=== PATIENT | male | born 1970 ===

== ENCOUNTER 2018-07-02 00:53 | Inpatient (IN) | payer BC ==
[2018-07-02] MEDS ORDERED: Sodium Chloride 0.9% 1,000 ML IV STA ×2 (01:01→03:18)
[2018-07-02] MEDS ORDERED: Morphine 2 mg/ml ISec IVP STA ×3 (01:01→02:44)
[2018-07-02 01:20] LABS: BASO # 0.02 K/mm3 (0.0-2.0); BASO % 0.2 % (0.0-3.0); EOS # 0.1 (0.0-0.7); EOS % 1.2 % (1.5-5.0); HEMOGLOBIN 13.4 g/dL (14.0-18.0); LYMPH # 3.1 (1.2-3.4); LYMPH % 26.4 % (22.0-35.0); MEAN CORPUSCULAR HGB CONC 33.8 g/dl (31.0-37.0); MEAN PLATELET VOLUME 10.1 fl (7.0-11.0); MONO # 0.6 (0.1-0.6); MONO % 5.3 % (1.0-6.0); RBC 4.46 10^6/uL (3.5-6.1); RED CELL DISTRIBUTION WIDTH 13.5 % (11.5-14.5); WHITE BLOOD COUNT 11.6 10^3/uL (4.5-11.0)
[2018-07-02 01:24] LABS: INR 1.05; PARTIAL THROMBOPLASTIN TIME 37.2 Seconds (26.9-38.3); PROTHROMBIN TIME 11.6 SECONDS (9.4-12.5)
[2018-07-02 01:30] LABS: ALB/GLOB RATIO 1.3 (1.1-1.8); ALBUMIN 4.3 g/dL (3.0-4.8); ALT/SGPT 33 U/L (7-56); AMYLASE 73 U/L (35-125); AST/SGOT 36 U/L (17-59); BLOOD UREA NITROGEN 22 mg/dL (7-21); CALCIUM 9.1 mg/dL (8.4-10.5); GFR NON-AFRICAN AMERICAN > 60; LIPASE 121 U/L (23-300)
[2018-07-02] MEDS ORDERED: Iohexol 350 MG/100 ML VIAL ONE (01:41)
[2018-07-02 01:48] LABS: TROPONIN I < 0.01 ng/mL
--- NOTE | 2018-07-02 01:59 | ED PDOC ---
Arrival/HPI - General Chief Complaint: Abdominal Pain Time Seen by Provider: 07/02/18 00:56 Historian: Patient - History of Present Illness Narrative History of Present Illness (Text): 07/02/18 01:00 Ernie Bowie is a 48 year old male, whose past medical history includes gastritis, who presents to the ED complaining of abdominal pain since this evening. Patient reports associated nausea and notes he attempted to induce vomiting secondary to his nausea. Patient states he had tacos for dinner tonight. Patient denies any fever, chills, chest pain, shortness of breath, diarrhea, urinary symptoms, back pain, neck pain, headache, dizziness, or any other complaints. Time/Duration: Other (today) Symptom Onset: Gradual Symptom Course: Unchanged Activities at Onset: Light, Eating Context: Home Past Medical History - Provider Review Nursing Documentation Reviewed: Yes - Infectious Disease Hx of Infectious Diseases: None - Cardiac Hx Cardiac Disorders: No - Pulmonary Hx Respiratory Disorders: No - Neurological Hx Neurological Disorder: No - Gastrointestinal Hx Gastrointestinal Disorders: No Hx Gastroesophageal Reflux: Yes - Psychiatric Hx Psychophysiologic Disorder: No Hx Substance Use: No - Anesthesia Hx Anesthesia: No Family/Social History - Physician Review Nursing Documentation Reviewed: Yes Family/Social History: Unknown Family HX Smoking Status: Light Smoker < 10 Cigarettes Daily Hx Alcohol Use: No Hx Substance Use: No Allergies/Home Meds Allergies/Adverse Reactions: Allergies No Known Allergies Allergy (Verified 07/02/18 00:58) Home Medications: Home Meds Medication Instructions Recorded Confirmed No Known Home Med 07/02/18 07/02/18 Review of Systems - Physician Review All systems were reviewed & negative as marked: Yes - Review of Systems Constitutional: Normal. absent: Fevers Eyes: Normal ENT: Normal Respiratory: Normal. absent: SOB, Cough Cardiovascular: Normal. absent: Chest Pain Gastrointestinal: Abdominal Pain, Nausea Genitourinary Male: Normal. absent: Dysuria, Frequency, Hematuria, Urinary Output Changes Musculoskeletal: Normal. absent: Back Pain, Neck Pain Skin: Normal. absent: Rash Neurological: Normal. absent: Headache, Dizziness Endocrine: Normal Hemo/Lymphatic: Normal Psychiatric: Normal Physical Exam Vital Signs Reviewed: Yes Vital Signs Temp Pulse Resp BP Pulse Ox 07/02/18 01:05 98.1 F 52 L 20 149/105 H 100 Temperature: Afebrile Blood Pressure: Hypertensive Pulse: Regular Respiratory Rate: Normal Appearance: Positive for: Well-Appearing, Non-Toxic, Comfortable Pain Distress: None Mental Status: Positive for: Alert and Oriented X 3 - Systems Exam Head: Present: Atraumatic, Normocephalic Pupils: Present: PERRL Extroacular Muscles: Present: EOMI Conjunctiva: Present: Normal Mouth: Present: Moist Mucous Membranes Neck: Present: Normal Range of Motion Respiratory/Chest: Present: Clear to Auscultation, Good Air Exchange. No: Respiratory Distress, Accessory Muscle Use Cardiovascular: Present: Regular Rate and Rhythm, Normal S1, S2. No: Murmurs Abdomen: No: Tenderness, Distention, Peritoneal Signs Back: Present: Normal Inspection Upper Extremity: Present: Normal Inspection. No: Cyanosis, Edema Lower Extremity: Present: Normal Inspection. No: Edema Neurological: Present: GCS=15, CN II-XII Intact, Speech Normal Skin: Present: Warm, Dry, Normal Color. No: Rashes Psychiatric: Present: Alert, Oriented x 3, Normal Insight, Normal Concentration Medical Decision Making ED Course and Treatment: 07/02/18 01:00 Impression: 48 year old male complaining of abdominal pain and nausea. Plan: -- CT Abdomen and Pelvis with IV contrast -- EKG -- Labs, cardiac enzymes, amylase, lipase, blood cultures -- UA -- IV fluids -- Zofran -- Pepcid -- Morphine -- Reassess and disposition Prior Visits: Notes and results from previous visits were reviewed. Progress Notes: Reviewed EKG, sinus bradycardia at [address]-segment elevations or depressions, no T-wave inversions, normal intervals. 07/02/18 03:08 CT Abdomen and Pelvis: Uncomplicated colonic diverticulosis. Mild prostatomegaly. Prostatic calcifications. Mild diffuse thickening of the bladder which can be secondary to mild cystitis versus chronic changes of chronic bladder obstruction from prostatomegaly. Mild diffuse spondylosis. The liver is of uniform attenuation without mass or defect. There is no intra or extrahepatic biliary ductal dilatation. The spleen is normal. The gallbladder is within normal limits. The pancreas is of normal contour and attenuation characteristics. There is no evidence of adrenal mass. Both kidneys demonstrate prompt and equal nephrograms. The kidneys are normal in size, shape and configuration. There is no evidence of renal or ureteral mass. No renal or ureteral calculi are identified. There is no hydroureter or hydronephrosis. No evidence for appendicitis. There is no bowel wall thickening. No evidence for small or large bowel obstruction. There is no evidence of abdominal ascites or lymphadenopathy. There is no evidence of intrinsic or extrinsic bladder mass. There is no pelvic ascites or lymphadenopathy. Images of the lung bases show no evidence of pleural or parenchymal mass. There are no pleural effusions. The bony structures are free of lytic or blastic lesions. IMPRESSION: Uncomplicated colonic diverticulosis. Mild prostatomegaly. Prostatic calcifications. Mild diffuse thickening of the bladder which can be secondary to mild cystitis versus chronic changes of chronic bladder obstruction from prostatomegaly. Mild diffuse spondylosis. Electronically signed on July 02, 2018 3:05:45 AM EDT by: Rick Mcpherson M.D., Certified by ABR, MSK, Neuroradiology 07/02/18 03:[address] Del Rio, who is aware and agrees with plan. Accepts pt in to his service. - Lab Interpretations Lab Results: PT 11.6 SECONDS (9.4-12.5) 07/02/18 01:06 INR 1.05 07/02/18 01:06 APTT 37.2 Seconds (26.9-38.3) 07/02/18 01:06 Troponin I < 0.01 ng/mL 07/02/18 01:06 Total Bilirubin 0.5 mg/dL (0.2-1.3) 07/02/18 01:06 AST 36 U/L (17-59) 07/02/18 01:06 ALT 33 U/L (7-56) 07/02/18 01:06 Alkaline Phosphatase 88 U/L (38-126) 07/02/18 01:06 Total Protein 7.5 g/dL (5.8-8.3) 07/02/18 01:06 Albumin 4.3 g/dL (3.0-4.8) 07/02/18 01:06 Globulin 3.3 gm/dL 07/02/18 01:06 Albumin/Globulin Ratio 1.3 (1.1-1.8) 07/02/18 01:06 Amylase 73 U/L (35-125) 07/02/18 01:06 Lipase 121 U/L (23-300) 07/02/18 01:06 - RAD Interpretation Radiology Orders: 07/02/18 01:01 CHEST PORTABLE [RAD] Stat 07/02/18 01:21 ABD & PELVIS IV CONTRAST ONLY [CT] Stat - EKG Interpretation Interpreted by ED Physician: Yes Type: 12 lead EKG - Medication Orders Current Medication Orders: Sodium Chloride (Sodium Chloride 0.9%) 1,000 mls @ 100 mls/hr IV .Q10H STA Stop: 07/02/18 11:00 Last Admin: 07/02/18 01:12 Dose: 100 mls/hr eMAR Start Stop Document 07/02/18 01:12 IT (Rec: 07/02/18 01:12 IT [id number]) Intravenous Solution Start Date 07/02/18 Start Time 01:12 Discontinued Medications Famotidine (Pepcid) 20 mg IVP STAT STA Stop: 07/02/18 01:02 Last Admin: 07/02/18 01:12 Dose: 20 mg IVP Administration Document 07/02/18 01:12 IT (Rec: 07/02/18 01:12 IT [id number]) Charges for Administration # of IVP Administrations 1 Morphine Sulfate (Morphine) 2 mg IVP STAT STA Stop: 07/02/18 01:02 Last Admin: 07/02/18 01:12 Dose: 2 mg MAR Pain Assessment Document 07/02/18 01:12 IT (Rec: 07/02/18 01:12 IT [facility] [id number]) Pain Reassessment Is this a pain reassessment? No Sleep Is patient sleeping during reassessment? No Presence of Pain Presence of Pain Yes Pain Scale Used Protocol: PSCALES Pain Scale Used Numeric IVP Administration Document 07/02/18 01:12 IT (Rec: 07/02/18 01:12 IT [facility] [id number]) Charges for Administration # of IVP Administrations 1 Morphine Sulfate (Morphine) 2 mg IVP STAT STA Stop: 07/02/18 01:40 Last Admin: 07/02/18 01:51 Dose: 2 mg MAR Pain Assessment Document 07/02/18 01:51 IT (Rec: 07/02/18 01:52 IT [id number]) Pain Reassessment Is this a pain reassessment? No Sleep Is patient sleeping during reassessment? No Presence of Pain Presence of Pain Yes IVP Administration Document 07/02/18 01:51 IT (Rec: 07/02/18 01:52 IT [id number]) Charges for Administration # of IVP Administrations 1 Ondansetron HCl (Zofran Inj) 4 mg IVP STAT STA Stop: 07/02/18 01:02 Last Admin: 07/02/18 01:12 Dose: 4 mg IVP Administration Document 07/02/18 01:12 IT (Rec: 07/02/18 01:12 IT [id number]) Charges for Administration # of IVP Administrations 1 - Scribe Statement The provider has reviewed the documentation as recorded by the Amita Bryan Provider Scribe Attestation: All medical record entries made by the Ivonneibjazzy were at my direction and personally dictated by me. I have reviewed the chart and agree that the record accurately reflects my personal performance of the history, physical exam, medical decision making, and the department course for this patient. I have also personally directed, reviewed, and agree with the discharge instructions and disposition. Disposition/Present on Arrival - Present on Arrival Any Indicators Present on Arrival: No History of DVT/PE: No History of Uncontrolled Diabetes: No Urinary Catheter: No History of Decub. Ulcer: No History Surgical Site Infection Following: None - Disposition Have Diagnosis and Disposition been Completed?: Yes Diagnosis: Abdominal pain Disposition: HOSPITALIZED Disposition Time: 03:15 Condition: FAIR
[2018-07-02 02:16] LABS: CK MB% 1.1 % (2.5-3.0); CK-MB 5.4 ng/mL (0.0-3.6)
[2018-07-02] MEDS ORDERED: HYDROmorphone 2 mg/ml ISec IVP STA (03:12)
[2018-07-02 03:28] LABS: VENOUS BLOOD GAS PO2 49 mm/Hg (30-55); VENOUS BLOOD PH 7.31 (7.32-7.43)
[2018-07-02] MEDS ORDERED: Alum-Mag Hydrox-Simethicone Susp (30 mL) PO ONE (10:39)
--- NOTE | 2018-07-02 10:56 | RAD ---
Date of service: 07/02/2018 HISTORY: abd pain COMPARISON: No prior. TECHNIQUE: 1 view obtained. FINDINGS: LUNGS: No active pulmonary disease. PLEURA: No significant pleural effusion identified, no pneumothorax apparent. CARDIOVASCULAR: No aortic atherosclerotic calcification present. Normal cardiac size. No pulmonary vascular congestion. OSSEOUS STRUCTURES: No significant abnormalities. VISUALIZED UPPER ABDOMEN: Normal. OTHER FINDINGS: None. IMPRESSION: No active disease.
--- NOTE | 2018-07-02 10:58 | CT ---
Date of service: 07/02/2018 PROCEDURE: CT Abdomen and Pelvis with contrast HISTORY: abd pain COMPARISON: None. TECHNIQUE: Contrast dose: 100 mL Omnipaque 350 Radiation dose: Total exam DLP = 416.2 mGy-cm. This CT exam was performed using one or more of the following dose reduction techniques: Automated exposure control, adjustment of the mA and/or kV according to patient size, and/or use of iterative reconstruction technique. FINDINGS: LOWER THORAX: Unremarkable. LIVER: Unremarkable. No gross lesion or ductal dilatation. GALLBLADDER AND BILE DUCTS: Unremarkable. PANCREAS: Unremarkable. No gross lesion or ductal dilatation. SPLEEN: Unremarkable. ADRENALS: Unremarkable. No mass. KIDNEYS AND URETERS: Unremarkable. No hydronephrosis. No solid mass. VASCULATURE: Unremarkable. No aortic aneurysm. No aortic atherosclerotic calcification or mural plaque present. BOWEL: Colonic diverticulosis. No obstruction. No gross mural thickening. APPENDIX: Normal appendix. PERITONEUM: Unremarkable. No free fluid. No free air. LYMPH NODES: Unremarkable. No enlarged lymph nodes. BLADDER: Unremarkable. REPRODUCTIVE: Prostatomegaly. BONES: No acute fracture. OTHER FINDINGS: None. IMPRESSION: No acute abdominal pelvic pathology. Colonic diverticulosis without acute diverticulitis.
--- NOTE | 2018-07-02 12:56 | CP.PCM.HP ---
<JasperWashington - Last Filed: 07/02/18 12:51> History of Present Illness - History of Present Illness History of Present Illness: Washington Hutchinson D.O. PGY-3, Internal Medicine Resident, Dr. Del Rio's Service, H&P CC: Severe abdominal pain overnight 48-year-old male with a past medical history of gastritis who presented for complaints of abdominal pain that started last night. Patient relates that he has had issues with his stomach for approximately 2 years. Patient discussed these with his primary medical doctor and was started on a 1 month trial of PPI therapy. Patient at that time had improvement in his symptoms for some time but then they recurred. Patient again saw his PMD and was told to continue to take PPI therapy only as needed. Patient was instructed to follow-up with gastroenterology but he never got around to it. Patient states that last night he had tacos that were prepared by his girlfriend. His girlfriend and the girlfriend's daughter also ate the same thing and did not have any issues. Patient states that since he has some discomfort he went and tried to take an old prescription of omeprazole. Patient's abdominal pain increased after he took this pill and he then noticed that it is actually for about 1 year already. Patient felt nauseous but did not vomit, admits to trying to induce vomiting to try to "clear his system." Patient denies ever having pain is bad. Patient states that the pain was approximately an 8 out of 10, was diffuse but worse in the lower abdomen. Did not radiate. States that when his pain like this comes on its usually a few hours after a meal. Patient admits to drinking multiple cups of coffee per day. Patient at this time denies any fevers, chills, constipation, diarrhea, chest pain, shortness of breath, hematuria, dysuria or other complaints. PMH: As above SH: 31-year smoking history with gradually decreasing use from 1 pack/day to 1 pack/week at the latest, denies alcohol use, denies drug use FH: Father of a stroke and hypertension, mother of endometrial cancer that recurred after treatment Meds: PRN omeprazole that he has not taken for a long time until last night Allergies: No known allergies Present on Admission - Present on Admission Any Indicators Present on Admission: No Review of Systems - Review of Systems All systems: reviewed and no additional remarkable complaints except (as per HPI) Past Patient History - Infectious Disease Hx of Infectious Diseases: None - Past Social History Smoking Status: Light Smoker < 10 Cigarettes Daily - CARDIAC Hx Cardiac Disorders: No - PULMONARY Hx Respiratory Disorders: No - NEUROLOGICAL Hx Neurological Disorder: No - MUSCULOSKELETAL/RHEUMATOLOGICAL Hx Falls: No - GASTROINTESTINAL Hx Gastroesophageal Reflux: Yes (gastritis) - PSYCHIATRIC Hx Psychophysiologic Disorder: No Hx Substance Use: No - SURGICAL HISTORY Hx Surgeries: No - ANESTHESIA Hx Anesthesia: No Meds Allergies/Adverse Reactions: Allergies Allergy/AdvReac Type Severity Reaction Status Date / Time No Known Allergies Allergy Verified 07/02/18 00:58 Physical Exam - Constitutional Appears: Non-toxic, No Acute Distress - Head Exam Head Exam: ATRAUMATIC, NORMOCEPHALIC - Eye Exam Eye Exam: EOMI, PERRL. absent: Scleral icterus - ENT Exam ENT Exam: Mucous Membranes Moist, Normal Oropharynx - Neck Exam Neck exam: Positive for: Normal Inspection. Negative for: Lymphadenopathy - Respiratory Exam Respiratory Exam: Clear to Auscultation Bilateral. absent: Rales, Rhonchi, Wheezes - Cardiovascular Exam Cardiovascular Exam: RRR, +S1, +S2. absent: Gallop, Rubs - GI/Abdominal Exam GI & Abdominal Exam: Normal Bowel Sounds, Soft, Tenderness (RUQ, +Colbert's). absent: Distended - Extremities Exam Extremities exam: Positive for: normal capillary refill. Negative for: calf tenderness, pedal edema - Neurological Exam Neurological exam: Alert, Oriented x3 - Psychiatric Exam Psychiatric exam: Normal Affect, Normal Mood - Skin Skin Exam: Dry, Warm Results - Vital Signs Recent Vital Signs: Last Vital Signs Temp 98.1 F 07/02/18 06:00 Pulse 68 07/02/18 06:00 Resp 18 07/02/18 06:00 BP 145/83 07/02/18 06:00 Pulse Ox 100 07/02/18 06:00 - Labs Result Diagrams: 07/02/18 01:06 07/02/18 01:06 Labs: Laboratory Results - last 24 hr 07/02/18 07/02/18 07/02/18 01:06 01:06 01:06 WBC 11.6 H RBC 4.46 Hgb 13.4 L Hct 39.7 L MCV 89.0 MCH 30.0 MCHC 33.8 RDW 13.5 Plt Count 217 MPV 10.1 Neut % (Auto) 66.9 Lymph % (Auto) 26.4 Dare % (Auto) 5.3 Eos % (Auto) 1.2 L Baso % (Auto) 0.2 Lymph # (Auto) 3.1 Dare # (Auto) 0.6 Eos # (Auto) 0.1 Baso # (Auto) 0.02 Absolute Neuts (auto) 7.74 H PT 11.6 INR 1.05 APTT 37.2 pO2 VBG pH VBG pCO2 VBG HCO3 VBG Total CO2 VBG O2 Sat (Calc) VBG Base Excess VBG Potassium Glucose Lactate FiO2 Sodium 139 Potassium 4.2 Chloride 106 Carbon Dioxide 26 Anion Gap 12 BUN 22 H Creatinine 1.1 Est GFR ( Amer) > 60 Est GFR (Non-Af Amer) > 60 Random Glucose 125 H Calcium 9.1 Total Bilirubin 0.5 AST 36 ALT 33 Alkaline Phosphatase 88 Lactate Dehydrogenase 589 Total Creatine Kinase 481 H CK-MB (CK-2) 5.4 H CK-MB (CK-2) % 1.1 L Troponin I < 0.01 Total Protein 7.5 Albumin 4.3 Globulin 3.3 Albumin/Globulin Ratio 1.3 Amylase 73 Lipase 121 Venous Blood Potassium 07/02/18 03:15 WBC RBC Hgb Hct MCV MCH MCHC RDW Plt Count MPV Neut % (Auto) Lymph % (Auto) Dare % (Auto) Eos % (Auto) Baso % (Auto) Lymph # (Auto) Dare # (Auto) Eos # (Auto) Baso # (Auto) Absolute Neuts (auto) PT INR APTT pO2 49 VBG pH 7.31 L VBG pCO2 54.0 VBG HCO3 27.2 VBG Total CO2 28.9 H VBG O2 Sat (Calc) 84.7 H VBG Base Excess 0.0 VBG Potassium 3.7 Glucose 134 H Lactate 0.9 FiO2 21.0 Sodium 140.0 Potassium Chloride 107.0 Carbon Dioxide Anion Gap BUN Creatinine Est GFR ( Amer) Est GFR (Non-Af Amer) Random Glucose Calcium Total Bilirubin AST ALT Alkaline Phosphatase Lactate Dehydrogenase Total Creatine Kinase CK-MB (CK-2) CK-MB (CK-2) % Troponin I Total Protein Albumin Globulin Albumin/Globulin Ratio Amylase Lipase Venous Blood Potassium 3.7 Assessment & Plan - Assessment and Plan (Free Text) Assessment: 48-year-old male with a past medical history of gastritis who presented for complaints of abdominal pain that started last night. Plan: 1. Abdominal pain 2. Diverticulosis without diverticulitis 3. Tobacco abuse Etiology of his abdominal pain unclear. Lipase and amylase normal. Abdomen and pelvis CT with nonspecific findings. Will obtain a GI consult. Discussed case with GI fellow. We will obtained an ultrasound of the gallbladder given his positive Colbert sign. We will keep n.p.o. for now. We will keep with Zofran as needed for his nausea. We will start Protonix 40 mg IV push daily. We will treat the patient symptomatically. Discussed tobacco cessation, patient thinking about it. Case discussed with nursing staff. Will follow patient clinically. Patient was seen and examined and case discussed at length with attending physician. - Date & Time Date: 07/02/18 Time: 08:00 <Shar Del Rio - Last Filed: 07/02/18 16:01> Results - Vital Signs Recent Vital Signs: Last Vital Signs Temp 98.1 F 07/02/18 14:00 Pulse 81 07/02/18 14:00 Resp 18 07/02/18 14:00 BP 128/80 07/02/18 14:00 Pulse Ox 98 07/02/18 14:00 - Labs Result Diagrams: 07/02/18 01:06 07/02/18 01:06 Labs: Laboratory Results - last 24 hr 07/02/18 07/02/18 07/02/18 01:06 01:06 01:06 WBC 11.6 H RBC 4.46 Hgb 13.4 L Hct 39.7 L MCV 89.0 MCH 30.0 MCHC 33.8 RDW 13.5 Plt Count 217 MPV 10.1 Neut % (Auto) 66.9 Lymph % (Auto) 26.4 Dare % (Auto) 5.3 Eos % (Auto) 1.2 L Baso % (Auto) 0.2 Lymph # (Auto) 3.1 Dare # (Auto) 0.6 Eos # (Auto) 0.1 Baso # (Auto) 0.02 Absolute Neuts (auto) 7.74 H PT 11.6 INR 1.05 APTT 37.2 pO2 VBG pH VBG pCO2 VBG HCO3 VBG Total CO2 VBG O2 Sat (Calc) VBG Base Excess VBG Potassium Glucose Lactate FiO2 Sodium 139 Potassium 4.2 Chloride 106 Carbon Dioxide 26 Anion Gap 12 BUN 22 H Creatinine 1.1 Est GFR ( Amer) > 60 Est GFR (Non-Af Amer) > 60 Random Glucose 125 H Calcium 9.1 Total Bilirubin 0.5 AST 36 ALT 33 Alkaline Phosphatase 88 Lactate Dehydrogenase 589 Total Creatine Kinase 481 H CK-MB (CK-2) 5.4 H CK-MB (CK-2) % 1.1 L Troponin I < 0.01 Total Protein 7.5 Albumin 4.3 Globulin 3.3 Albumin/Globulin Ratio 1.3 Amylase 73 Lipase 121 Venous Blood Potassium Urine Color Urine Appearance Urine pH Ur Specific Gaastra Urine Protein Urine Glucose (UA) Urine Ketones Urine Blood Urine Nitrate Urine Bilirubin Urine Urobilinogen Ur Leukocyte Esterase 07/02/18 07/02/18 03:15 13:15 WBC RBC Hgb Hct MCV MCH MCHC RDW Plt Count MPV Neut % (Auto) Lymph % (Auto) Dare % (Auto) Eos % (Auto) Baso % (Auto) Lymph # (Auto) Dare # (Auto) Eos # (Auto) Baso # (Auto) Absolute Neuts (auto) PT INR APTT pO2 49 VBG pH 7.31 L VBG pCO2 54.0 VBG HCO3 27.2 VBG Total CO2 28.9 H VBG O2 Sat (Calc) 84.7 H VBG Base Excess 0.0 VBG Potassium 3.7 Glucose 134 H Lactate 0.9 FiO2 21.0 Sodium 140.0 Potassium Chloride 107.0 Carbon Dioxide Anion Gap BUN Creatinine Est GFR ( Amer) Est GFR (Non-Af Amer) Random Glucose Calcium Total Bilirubin AST ALT Alkaline Phosphatase Lactate Dehydrogenase Total Creatine Kinase CK-MB (CK-2) CK-MB (CK-2) % Troponin I Total Protein Albumin Globulin Albumin/Globulin Ratio Amylase Lipase Venous Blood Potassium 3.7 Urine Color Yellow Urine Appearance Clear Urine pH 7.0 Ur Specific Gaastra 1.015 Urine Protein Negative Urine Glucose (UA) Negative Urine Ketones Negative Urine Blood Negative Urine Nitrate Negative Urine Bilirubin Negative Urine Urobilinogen 4.0 H Ur Leukocyte Esterase Negative Assessment & Plan - Assessment and Plan (Free Text) Plan: Pt seen and examined by me. I have reviewed the note of the medical office technician and I agree with it. I have discussed the assessment and plan with the resident. I have reviewed the medications and the last labs.
[2018-07-02] MEDS: Morphine 2 mg/ml ISec IVP PRN ×2 (13:14→19:26)
[2018-07-02 13:43] LABS: URINE BILIRUBIN NEGATIVE (NEGATIVE); URINE BLOOD NEGATIVE (NEGATIVE); URINE GLUCOSE (UA) NEGATIVE (NEGATIVE); URINE LEUKOCYTE ESTERASE NEGATIVE Leu/uL (NEGATIVE); URINE PROTEIN NEGATIVE mg/dL (<30 mg/dL)
[2018-07-02 13:44] LABS: URINE APPEARANCE CLEAR (CLEAR); URINE COLOR YELLOW (YELLOW)
--- NOTE | 2018-07-02 16:35 | HP ---
DATE OF EXAM: 07/02/2018 HISTORY OF PRESENT ILLNESS: The patient was seen and examined. I do agree with the note of the medical assisting program director. I was involved in the plan of care. The patient is admitted to the hospital because of abdominal pain, he said it started yesterday 09/15. He has been having nausea, but do not have any vomiting. The patient has been given morphine in the ER, which relieved the patient, has diverticulosis. He is going to be seen by GI for constipation. The patient may need an endoscopy. He was given Zofran for his nausea. He has been started on Protonix. The patient is currently n.p.o. He has a history of tobacco use and was advised to stop smoking. The patient will get an ultrasound to evaluate his gallbladder. Shar Del Rio MD
--- NOTE | 2018-07-02 17:23 | CARD ---
APPROVED REPORT Date of service: 07/02/2018 EKG Measurement Heart [id number] [place] [id number] [id number] <Conclusion> Sinus bradycardia Otherwise normal ECG
--- NOTE | 2018-07-02 21:12 | CP.PCM.CON ---
<Que Fuentes - Last Filed: 07/02/18 21:07> History of Present Illness - History of Present Illness History of Present Illness: PGY-4 GI Fellow Consult Note 48 yo M with h/o gastritis (clinical dx, prev on PPI trial) presenting with complaint of abdominal pain. He states in the evening of 07/01 after eating tacos he had abrupt onset sharp, non-radiating, RUQ pain, worse with PO intake with some associated nausea but no emesis. States this was different and more severe than his previous gastritis issues. States he tried an old rx of PPI w/o much relief. Denied any F/C, CP/SOB, weight loss, dysphagia, melena, nor hematochezia. No prior endoscopic evaluations. 12 point ROS negative other than stated above MHx/SurgHx: As above Meds: Reviewed in chart FamHx: Father of a stroke and hypertension, mother of endometrial cancer that recurred after treatment SocHx: 31-year smoking history with gradually decreasing use from 1 pack/day to 1 pack/week at the latest, denies alcohol use, denies drug use Allergies: No known allergies Past Patient History - Infectious Disease Hx of Infectious Diseases: None - Past Social History Smoking Status: Light Smoker < 10 Cigarettes Daily - CARDIAC Hx Cardiac Disorders: No - PULMONARY Hx Respiratory Disorders: No - NEUROLOGICAL Hx Neurological Disorder: No - MUSCULOSKELETAL/RHEUMATOLOGICAL Hx Falls: No - GASTROINTESTINAL Hx Gastroesophageal Reflux: Yes (gastritis) - PSYCHIATRIC Hx Psychophysiologic Disorder: No Hx Substance Use: No - SURGICAL HISTORY Hx Surgeries: No - ANESTHESIA Hx Anesthesia: No Meds Allergies/Adverse Reactions: Allergies Allergy/AdvReac Type Severity Reaction Status Date / Time No Known Allergies Allergy Verified 07/02/18 00:58 - Medications Medications: Current Medications Morphine Sulfate (Morphine) 2 mg IVP Q6H PRN PRN Reason: Pain, severe (8-10) Last Admin: 07/02/18 19:26 Dose: 2 mg Ondansetron HCl (Zofran Inj) 4 mg IVP Q4H PRN PRN Reason: Nausea/Vomiting Pantoprazole Sodium (Protonix Inj) 40 mg IVP DAILY SID Last Admin: 07/02/18 10:06 Dose: 40 mg Physical Exam - Constitutional Appears: Well, No Acute Distress - Head Exam Head Exam: ATRAUMATIC, NORMAL INSPECTION - Eye Exam Eye Exam: EOMI. absent: Scleral icterus - ENT Exam ENT Exam: Mucous Membranes Moist. absent: Mucous Membranes Dry - Respiratory Exam Respiratory Exam: NORMAL BREATHING PATTERN. absent: Accessory Muscle Use - Cardiovascular Exam Cardiovascular Exam: REGULAR RHYTHM, RRR - GI/Abdominal Exam GI & Abdominal Exam: Normal Bowel Sounds, Soft, Tenderness (ttp throughout but worse in RUQ w/o guarding). absent: Bruit, Diminished Bowel Sounds, Distended, Firm, Guarding, Mass, Organomegaly, Pulsatile Mass, Rebound, Rigid - Extremities Exam Extremities exam: Positive for: normal inspection. Negative for: pedal edema - Neurological Exam Neurological exam: Alert, CN II-XII Intact - Psychiatric Exam Psychiatric exam: Normal Affect, Normal Mood - Skin Skin Exam: Normal Color, Warm Results - Vital Signs Recent Vital Signs: Last Vital Signs Temp 98.1 F 07/02/18 14:00 Pulse 81 07/02/18 14:00 Resp 18 07/02/18 14:00 BP 128/80 07/02/18 14:00 Pulse Ox 98 07/02/18 14:00 - Labs Result Diagrams: 07/02/18 01:06 07/02/18 01:06 Labs: Laboratory Results - last 24 hr 07/02/18 07/02/18 07/02/18 01:06 01:06 01:06 WBC 11.6 H RBC 4.46 Hgb 13.4 L Hct 39.7 L MCV 89.0 MCH 30.0 MCHC 33.8 RDW 13.5 Plt Count 217 MPV 10.1 Neut % (Auto) 66.9 Lymph % (Auto) 26.4 Moody % (Auto) 5.3 Eos % (Auto) 1.2 L Baso % (Auto) 0.2 Lymph # (Auto) 3.1 Moody # (Auto) 0.6 Eos # (Auto) 0.1 Baso # (Auto) 0.02 Absolute Neuts (auto) 7.74 H PT 11.6 INR 1.05 APTT 37.2 pO2 VBG pH VBG pCO2 VBG HCO3 VBG Total CO2 VBG O2 Sat (Calc) VBG Base Excess VBG Potassium Glucose Lactate FiO2 Sodium 139 Potassium 4.2 Chloride 106 Carbon Dioxide 26 Anion Gap 12 BUN 22 H Creatinine 1.1 Est GFR ( Amer) > 60 Est GFR (Non-Af Amer) > 60 Random Glucose 125 H Calcium 9.1 Total Bilirubin 0.5 AST 36 ALT 33 Alkaline Phosphatase 88 Lactate Dehydrogenase 589 Total Creatine Kinase 481 H CK-MB (CK-2) 5.4 H CK-MB (CK-2) % 1.1 L Troponin I < 0.01 Total Protein 7.5 Albumin 4.3 Globulin 3.3 Albumin/Globulin Ratio 1.3 Amylase 73 Lipase 121 Venous Blood Potassium Urine Color Urine Appearance Urine pH Ur Specific [employer] Urine Protein Urine Glucose (UA) Urine Ketones Urine Blood Urine Nitrate Urine Bilirubin Urine Urobilinogen Ur Leukocyte Esterase 07/02/18 07/02/18 03:15 13:15 WBC RBC Hgb Hct MCV MCH MCHC RDW Plt Count MPV Neut % (Auto) Lymph % (Auto) Moody % (Auto) Eos % (Auto) Baso % (Auto) Lymph # (Auto) Moody # (Auto) Eos # (Auto) Baso # (Auto) Absolute Neuts (auto) PT INR APTT pO2 49 VBG pH 7.31 L VBG pCO2 54.0 VBG HCO3 27.2 VBG Total CO2 28.9 H VBG O2 Sat (Calc) 84.7 H VBG Base Excess 0.0 VBG Potassium 3.7 Glucose 134 H Lactate 0.9 FiO2 21.0 Sodium 140.0 Potassium Chloride 107.0 Carbon Dioxide Anion Gap BUN Creatinine Est GFR ( Amer) Est GFR (Non-Af Amer) Random Glucose Calcium Total Bilirubin AST ALT Alkaline Phosphatase Lactate Dehydrogenase Total Creatine Kinase CK-MB (CK-2) CK-MB (CK-2) % Troponin I Total Protein Albumin Globulin Albumin/Globulin Ratio Amylase Lipase Venous Blood Potassium 3.7 Urine Color Yellow Urine Appearance Clear Urine pH 7.0 Ur Specific [employer] 1.015 Urine Protein Negative Urine Glucose (UA) Negative Urine Ketones Negative Urine Blood Negative Urine Nitrate Negative Urine Bilirubin Negative Urine Urobilinogen 4.0 H Ur Leukocyte Esterase Negative Assessment & Plan - Assessment and Plan (Free Text) Assessment: 48 yo M with h/o "gastritis" presenting with abd pain. # Abd Pain: Symptoms most c/w biliary colic. CT and liver tests unremarkable. Normal BMs. # Diverticulosis: seen on CT # Endo: No prior EGD/CSPY Plan: - Abd US - Trend liver tests - NPO - PPI - Will consider EGD pending course Pt seen and examined with Dr. Vines; please see attestation for further recs/changes. <Etienne Vines V - Last Filed: 07/02/18 23:21> Meds - Medications Medications: Current Medications Morphine Sulfate (Morphine) 2 mg IVP Q6H PRN PRN Reason: Pain, severe (8-10) Last Admin: 07/02/18 19:26 Dose: 2 mg Ondansetron HCl (Zofran Inj) 4 mg IVP Q4H PRN PRN Reason: Nausea/Vomiting Pantoprazole Sodium (Protonix Inj) 40 mg IVP DAILY SID Last Admin: 07/02/18 10:06 Dose: 40 mg Results - Vital Signs Recent Vital Signs: Last Vital Signs Temp 99 F 07/02/18 21:27 Pulse 82 07/02/18 21:27 Resp 18 07/02/18 21:27 BP 135/87 07/02/18 21:27 Pulse Ox 98 07/02/18 21:27 - Labs Result Diagrams: 07/02/18 01:06 07/02/18 01:06 Labs: Laboratory Results - last 24 hr 07/02/18 07/02/18 07/02/18 01:06 01:06 01:06 WBC 11.6 H RBC 4.46 Hgb 13.4 L Hct 39.7 L MCV 89.0 MCH 30.0 MCHC 33.8 RDW 13.5 Plt Count 217 MPV 10.1 Neut % (Auto) 66.9 Lymph % (Auto) 26.4 Moody % (Auto) 5.3 Eos % (Auto) 1.2 L Baso % (Auto) 0.2 Lymph # (Auto) 3.1 Moody # (Auto) 0.6 Eos # (Auto) 0.1 Baso # (Auto) 0.02 Absolute Neuts (auto) 7.74 H PT 11.6 INR 1.05 APTT 37.2 pO2 VBG pH VBG pCO2 VBG HCO3 VBG Total CO2 VBG O2 Sat (Calc) VBG Base Excess VBG Potassium Glucose Lactate FiO2 Sodium 139 Potassium 4.2 Chloride 106 Carbon Dioxide 26 Anion Gap 12 BUN 22 H Creatinine 1.1 Est GFR ( Amer) > 60 Est GFR (Non-Af Amer) > 60 Random Glucose 125 H Calcium 9.1 Total Bilirubin 0.5 AST 36 ALT 33 Alkaline Phosphatase 88 Lactate Dehydrogenase 589 Total Creatine Kinase 481 H CK-MB (CK-2) 5.4 H CK-MB (CK-2) % 1.1 L Troponin I < 0.01 Total Protein 7.5 Albumin 4.3 Globulin 3.3 Albumin/Globulin Ratio 1.3 Amylase 73 Lipase 121 Venous Blood Potassium Urine Color Urine Appearance Urine pH Ur Specific [employer] Urine Protein Urine Glucose (UA) Urine Ketones Urine Blood Urine Nitrate Urine Bilirubin Urine Urobilinogen Ur Leukocyte Esterase 07/02/18 07/02/18 03:15 13:15 WBC RBC Hgb Hct MCV MCH MCHC RDW Plt Count MPV Neut % (Auto) Lymph % (Auto) Moody % (Auto) Eos % (Auto) Baso % (Auto) Lymph # (Auto) Moody # (Auto) Eos # (Auto) Baso # (Auto) Absolute Neuts (auto) PT INR APTT pO2 49 VBG pH 7.31 L VBG pCO2 54.0 VBG HCO3 27.2 VBG Total CO2 28.9 H VBG O2 Sat (Calc) 84.7 H VBG Base Excess 0.0 VBG Potassium 3.7 Glucose 134 H Lactate 0.9 FiO2 21.0 Sodium 140.0 Potassium Chloride 107.0 Carbon Dioxide Anion Gap BUN Creatinine Est GFR ( Amer) Est GFR (Non-Af Amer) Random Glucose Calcium Total Bilirubin AST ALT Alkaline Phosphatase Lactate Dehydrogenase Total Creatine Kinase CK-MB (CK-2) CK-MB (CK-2) % Troponin I Total Protein Albumin Globulin Albumin/Globulin Ratio Amylase Lipase Venous Blood Potassium 3.7 Urine Color Yellow Urine Appearance Clear Urine pH 7.0 Ur Specific [employer] 1.015 Urine Protein Negative Urine Glucose (UA) Negative Urine Ketones Negative Urine Blood Negative Urine Nitrate Negative Urine Bilirubin Negative Urine Urobilinogen 4.0 H Ur Leukocyte Esterase Negative Attending/Attestation - Attestation I have personally seen and examined this patient.: Yes I have fully participated in the care of the patient.: Yes I have reviewed all pertinent clinical information: Yes Notes (Text): This is an addendum to the GI consultation report dictated by the fellow. The patient was seen and evaluated along with the fellow earlier. The differential diagnoses include a gastroenteritis, peptic ulcer disease and cholelithiasis. Patient has significant tenderness in the right upper quadrant area. CT scan was reviewed. We will continue IV PPI. Await for sonogram. Will consider endoscopy evaluation with sono is negative and still patient remains symptomatic 07/02/18 23:19
[2018-07-03] MEDS: Morphine 2 mg/ml ISec IVP PRN ×2 (03:07→13:59)
--- NOTE | 2018-07-03 10:57 | CP.PCM.PN ---
<Aftab Guzman - Last Filed: 07/03/18 10:59> Subjective - Date & Time of Evaluation Date of Evaluation: 07/03/18 Time of Evaluation: 09:10 - Subjective Subjective: PGY6 GI Fellow Progress Note Patient seen and examined bedside this morning. The patient states that he has ongoing abdominal pain, though improved from prior. No events overnight. Eager to eat. 12 system ROS performed and negative except where stated Objective - Vital Signs/Intake and Output Vital Signs (last 24 hours): Temp Pulse Resp BP Pulse Ox 98.6 F 83 18 126/78 97 07/03/18 06:00 07/03/18 06:00 07/03/18 06:00 07/03/18 06:00 07/03/18 06:00 - Medications Medications: Current Medications Morphine Sulfate (Morphine) 2 mg IVP Q6H PRN PRN Reason: Pain, severe (8-10) Last Admin: 07/03/18 03:07 Dose: 2 mg Ondansetron HCl (Zofran Inj) 4 mg IVP Q4H PRN PRN Reason: Nausea/Vomiting Pantoprazole Sodium (Protonix Inj) 40 mg IVP DAILY SID Last Admin: 07/03/18 10:19 Dose: 40 mg - Labs Labs: 07/02/18 01:06 07/02/18 01:06 PT 11.6 SECONDS (9.4-12.5) 07/02/18 01:06 INR 1.05 07/02/18 01:06 APTT 37.2 Seconds (26.9-38.3) 07/02/18 01:06 - Constitutional Appears: Non-toxic, No Acute Distress - Eye Exam Eye Exam: EOMI, PERRL - ENT Exam ENT Exam: Mucous Membranes Moist - Respiratory Exam Respiratory Exam: Clear to Ausculation Bilateral. absent: Rales, Rhonchi, Wheezes - Cardiovascular Exam Cardiovascular Exam: RRR, +S1, +S2 - GI/Abdominal Exam GI & Abdominal Exam: Soft, Tenderness (minimal RUQ/epigastric), Normal Bowel Sounds. absent: Distended, Firm, Guarding, Rigid, Organomegaly - Extremities Exam Extremities Exam: Normal Inspection. absent: Pedal Edema - Neurological Exam Neurological Exam: Alert, Awake, Oriented x3 - Psychiatric Exam Psychiatric exam: Normal Affect, Normal Mood - Skin Skin Exam: Dry, Warm Assessment and Plan - Assessment and Plan (Free Text) Assessment: Patient is a 48yo male without significant medical history who presented with abdominal pain -Abdominal pain, r/o biliary colic Plan: -CT and LFTs unremarkable on admission; pain improved since admission -Given persistence of abdominal pain, U/S pending - gallstones per my interpretation -Advance to liquid diet -Continue PPI therapy -Consider elective surgical evaluation <Etienne Vines V - Last Filed: 07/03/18 20:37> Objective - Vital Signs/Intake and Output Vital Signs (last 24 hours): Temp Pulse Resp BP Pulse Ox 98.1 F 87 18 125/86 98 07/03/18 14:00 07/03/18 14:00 07/03/18 14:00 07/03/18 14:00 07/03/18 14:00 - Medications Medications: Current Medications Morphine Sulfate (Morphine) 2 mg IVP Q6H PRN PRN Reason: Pain, severe (8-10) Last Admin: 07/03/18 13:59 Dose: 2 mg Ondansetron HCl (Zofran Inj) 4 mg IVP Q4H PRN PRN Reason: Nausea/Vomiting Pantoprazole Sodium (Protonix Inj) 40 mg IVP DAILY SID Last Admin: 07/03/18 10:19 Dose: 40 mg - Labs Labs: 07/02/18 01:06 07/02/18 01:06 PT 11.6 SECONDS (9.4-12.5) 07/02/18 01:06 INR 1.05 07/02/18 01:06 APTT 37.2 Seconds (26.9-38.3) 07/02/18 01:06 Attending/Attestation - Attestation I have personally seen and examined this patient.: Yes I have fully participated in the care of the patient.: Yes I have reviewed all pertinent clinical information, including history, physical exam and plan: Yes Notes (Text): The patient was seen and evaluated along with the resident earlier. Patient still complaining of discomfort in the right upper quadrant area ultrasound scan showed a multiple gallstones with a distended gallbladder. Patient would benefit from upper GI endoscopy if is negative we will consider HIDA scan. 07/03/18 20:35
--- NOTE | 2018-07-03 12:10 | CP.PCM.PN ---
<Washington Hutchinson - Last Filed: 07/03/18 12:05> Subjective - Date & Time of Evaluation Date of Evaluation: 07/03/18 Time of Evaluation: 07:45 - Subjective Subjective: Washington Hutchinson D.O. PGY-3, Internal Medicine Resident, Dr. Del Rio's Service, Progress Note 48-year-old male with a past medical history of gastritis who presented for complaints of abdominal pain. Patient was seen and examined at bedside. States that his discomfort is somewhat better but still present. Wants to eat. Nausea resolved. Objective - Vital Signs/Intake and Output Vital Signs (last 24 hours): Temp Pulse Resp BP Pulse Ox 98.6 F 83 18 126/78 97 07/03/18 06:00 07/03/18 06:00 07/03/18 06:00 07/03/18 06:00 07/03/18 06:00 - Medications Medications: Current Medications Morphine Sulfate (Morphine) 2 mg IVP Q6H PRN PRN Reason: Pain, severe (8-10) Last Admin: 07/03/18 03:07 Dose: 2 mg Ondansetron HCl (Zofran Inj) 4 mg IVP Q4H PRN PRN Reason: Nausea/Vomiting Pantoprazole Sodium (Protonix Inj) 40 mg IVP DAILY SID Last Admin: 07/03/18 10:19 Dose: 40 mg - Labs Labs: 07/02/18 01:06 07/02/18 01:06 PT 11.6 SECONDS (9.4-12.5) 07/02/18 01:06 INR 1.05 07/02/18 01:06 APTT 37.2 Seconds (26.9-38.3) 07/02/18 01:06 - Constitutional Appears: Non-toxic, No Acute Distress - Head Exam Head Exam: ATRAUMATIC, NORMOCEPHALIC - Eye Exam Eye Exam: EOMI, PERRL. absent: Scleral icterus - ENT Exam ENT Exam: Mucous Membranes Moist, Normal Oropharynx - Neck Exam Neck exam: Positive for: Normal Inspection. Negative for: Lymphadenopathy - Respiratory Exam Respiratory Exam: Clear to Auscultation Bilateral. absent: Rales, Rhonchi, Wheezes - Cardiovascular Exam Cardiovascular Exam: RRR, +S1, +S2. absent: Gallop, Rubs - GI/Abdominal Exam GI & Abdominal Exam: Normal Bowel Sounds, Soft, still has tenderness to RUQ light and deep palpation - Extremities Exam Extremities exam: Positive for: normal capillary refill. Negative for: calf tenderness, pedal edema - Neurological Exam Neurological exam: Alert, Oriented x3 - Psychiatric Exam Psychiatric exam: Normal Affect, Normal Mood - Skin Skin Exam: Dry, Warm Assessment and Plan - Assessment and Plan (Free Text) Assessment: 48-year-old male with a past medical history of gastritis who presented for complaints of abdominal pain. Plan: 1. Abdominal pain 2. Diverticulosis without diverticulitis 3. Tobacco abuse Symptomatically somewhat better. Nausea seems to have resolved but still having discomfort. States that his pain is controlled with morphine when he gets really bad. We will continue with the Protonix. GI consultation reviewed and appreciated. Ultrasound does appear in my opinion to have cholelithiasis and sludge. Pending official read. His diet has been advanced to liquids. I again reinforced tobacco cessation. Monitoring clinically. Patient was seen and examined and case discussed at length with attending physician. <Shar Del Rio - Last Filed: 07/03/18 13:42> Objective - Vital Signs/Intake and Output Vital Signs (last 24 hours): Temp Pulse Resp BP Pulse Ox 98.6 F 83 18 126/78 97 07/03/18 06:00 07/03/18 06:00 07/03/18 06:00 07/03/18 06:00 07/03/18 06:00 - Medications Medications: Current Medications Morphine Sulfate (Morphine) 2 mg IVP Q6H PRN PRN Reason: Pain, severe (8-10) Last Admin: 07/03/18 03:07 Dose: 2 mg Ondansetron HCl (Zofran Inj) 4 mg IVP Q4H PRN PRN Reason: Nausea/Vomiting Pantoprazole Sodium (Protonix Inj) 40 mg IVP DAILY SID Last Admin: 07/03/18 10:19 Dose: 40 mg - Labs Labs: 07/02/18 01:06 07/02/18 01:06 PT 11.6 SECONDS (9.4-12.5) 07/02/18 01:06 INR 1.05 07/02/18 01:06 APTT 37.2 Seconds (26.9-38.3) 07/02/18 01:06 Assessment and Plan - Assessment and Plan (Free Text) Plan: Patient was seen and examined by me. I have reviewed the note of the biomedical service engineer and have gone over the plan of care. I agree with the note. I have reviewed the medications and the last labs.
--- NOTE | 2018-07-03 12:27 | US ---
Date of service: 07/03/2018 HISTORY: Abd pain, +Colbert's COMPARISON: Abdomen pelvis CT 07/02/2018. TECHNIQUE: Sonographic evaluation of the right upper quadrant of the abdomen. FINDINGS: LIVER: Measures 17.2 cm in length. Normal echogenicity of the liver parenchyma. No mass. No intrahepatic bile duct dilatation. GALLBLADDER: Gallbladder is distended with fluid and numerous calculi shadowing posteriorly. Mural thickness measures 2.8 mm which is borderline abnormal. No obvious pericholecystic fluid collection. No reported sonographic Colbert sign either. Clinically correlate for cholecystitis nevertheless. COMMON BILE DUCT: Measures 6.4 mm. No stones. No dilatation. PANCREAS: Extensive overlying bowel gas completely obscures the pancreas. RIGHT KIDNEY: Measures 11.2 cm in length. Normal echogenicity. No calculus, mass, or hydronephrosis. AORTA: No aneurysmal dilatation. IVC: Unremarkable. OTHER FINDINGS: None . IMPRESSION: Gallbladder distension is reiterated with extensive cholelithiasis better appreciated sonographically than by CT from 07/02/2018. No pericholecystic fluid collection or gross mural thickening though the wall is upper limits of normal thickness. Common bile duct is borderline dilated as well but with no choledocholithiasis demonstrated. No sonographic Colbert sign is reported by the technologist. No intrahepatic biliary dilatation. Clinically correlate further for potential cholecystitis. Pancreas completely obscured by overlying bowel gas.
--- NOTE | 2018-07-03 17:35 | PN ---
DATE: 07/03/2018 SUBJECTIVE: The patient was seen and examined. I do agree with the note of the chief medical technologist. I was involved in the plan of care. Th patient had gallbladder distention with extensive cholelithiasis. No pericholecystic fluid collection is noticed. Common bile duct is borderline dilated. The patient is being followed by GI. The patient may need endoscopy with EUS. The patient continues to have pain, is n.p.o. He continues to have right upper quadrant pain. He is going to be advanced to a liquid diet, see if he tolerates. Will continue to follow closely. Will await for GI input. Shar Del Rio MD
[2018-07-04 07:00] LABS: BASO # 0.01 K/mm3 (0.0-2.0); BASO % 0.1 % (0.0-3.0); EOS # 0.3 (0.0-0.7); HEMOGLOBIN 13.7 g/dL (14.0-18.0); LYMPH # 2.7 (1.2-3.4); LYMPH % 30.7 % (22.0-35.0); MEAN CELL VOLUME 88.5 fl (80.0-105.0); MEAN CORPUSCULAR HEMOGLOBIN 29.7 pg (25.0-35.0); MEAN CORPUSCULAR HGB CONC 33.6 g/dl (31.0-37.0); MEAN PLATELET VOLUME 10.5 fl (7.0-11.0); MONO # 0.8 (0.1-0.6); MONO % 8.7 % (1.0-6.0); RBC 4.61 10^6/uL (3.5-6.1); RED CELL DISTRIBUTION WIDTH 13.2 % (11.5-14.5); WHITE BLOOD COUNT 8.7 10^3/uL (4.5-11.0)
[2018-07-04 07:21] LABS: ALB/GLOB RATIO 1.1 (1.1-1.8); ALBUMIN 3.8 g/dL (3.0-4.8); ALT/SGPT 33 U/L (7-56); AST/SGOT 38 U/L (17-59); BLOOD UREA NITROGEN 12 mg/dL (7-21); GFR NON-AFRICAN AMERICAN > 60
[2018-07-04] MEDS ORDERED: Sodium Chloride 0.9% 1,000 ML IV SCH ×2 (09:30→16:00)
--- NOTE | 2018-07-04 09:36 | CP.PCM.CON ---
<WildaGurpreet D - Last Filed: 07/04/18 09:48> History of Present Illness - History of Present Illness History of Present Illness: SURGERY CONSULT NOTE FOR DR. PATEL 48M with PMHx of gastritis presents with diffuse abdominal pain. Patient says that the pain began Monday and is described as sharp, non radiating, and worse in the right upper and lower quadrants. At its worst, it was a 10 out of 10. He says that the pain came on suddenly and he does not recall any inciting inciden ts. He claims to have had tacos the night before, but doesn't believe that to be the source as his does not have symptoms. He has never had this type of pain before, but did endorse a history of epigastric pain for the past few months. He was given a trial of omperazole by his PMD, which he said occasionally helps his pain. The patient denied any nausea, but he did induce vomiting yet the pain remains. He said the morphine he has been receiving in the hospital has helped the pain. He also promotes a history of black, tarry stools. Patient denies fever, fatigue, chills, chest pain, palpitations, shortness of breath, nausea, vomiting, diarrhea, constipation, urinary incontinence. Endorses dizziness and headache. PMHx: gastritis PSHx: Lipoma removal 10 years ago from upper back FamHx: Father (, HTN, stroke); Mother (, DM, endometrial cancer) Meds: Omeprazole PRN Allergies: NKDA Social: 20+ year smoking history (current 1/2 pack a week, but claims to have smoked more in past), denies alcohol, denies illicit drug use Review of Systems - Review of Systems All systems: reviewed and no additional remarkable complaints except (As per HPI) Past Patient History - Infectious Disease Hx of Infectious Diseases: None - Past Social History Smoking Status: Light Smoker < 10 Cigarettes Daily - CARDIAC Hx Cardiac Disorders: No - PULMONARY Hx Respiratory Disorders: No - NEUROLOGICAL Hx Neurological Disorder: No - MUSCULOSKELETAL/RHEUMATOLOGICAL Hx Falls: No - GASTROINTESTINAL Hx Gastrointestinal Disorders: No Hx Gastroesophageal Reflux: Yes - PSYCHIATRIC Hx Psychophysiologic Disorder: No Hx Substance Use: No - SURGICAL HISTORY Hx Surgeries: No - ANESTHESIA Hx Anesthesia: No Meds Allergies/Adverse Reactions: Allergies Allergy/AdvReac Type Severity Reaction Status Date / Time No Known Allergies Allergy Verified 07/02/18 00:58 - Medications Medications: Current Medications Sodium Chloride (Sodium Chloride 0.9%) 1,000 mls @ 100 mls/hr IV .Q10H [facility] Morphine Sulfate (Morphine) 2 mg IVP Q6H PRN PRN Reason: Pain, severe (8-10) Last Admin: 07/03/18 13:59 Dose: 2 mg Ondansetron HCl (Zofran Inj) 4 mg IVP Q4H PRN PRN Reason: Nausea/Vomiting Pantoprazole Sodium (Protonix Inj) 40 mg IVP DAILY [facility] Last Admin: 07/03/18 10:19 Dose: 40 mg Physical Exam - Constitutional Appears: Well, Non-toxic, No Acute Distress - Eye Exam Eye Exam: EOMI, PERRL - ENT Exam ENT Exam: Mucous Membranes Moist, Normal Exam - Respiratory Exam Respiratory Exam: Clear to Auscultation Bilateral, NORMAL BREATHING PATTERN - Cardiovascular Exam Cardiovascular Exam: REGULAR RHYTHM, +S1, +S2 - GI/Abdominal Exam GI & Abdominal Exam: Normal Bowel Sounds, Rebound, Soft, Tenderness (RLQ and RUQ). absent: Guarding, Rigid - Expanded GI/Abdominal Exam Expanded Expanded GI & Abdominal Exam: Colbert's Sign - Extremities Exam Extremities exam: Positive for: normal inspection. Negative for: pedal edema, tenderness - Neurological Exam Neurological exam: Alert, Oriented x3 - Psychiatric Exam Psychiatric exam: Normal Affect, Normal Mood - Skin Skin Exam: Dry, Intact, Normal Color, Warm Results - Vital Signs Recent Vital Signs: Last Vital Signs Temp 98.5 F 07/04/18 06:00 Pulse 76 07/04/18 06:00 Resp 20 07/04/18 06:00 BP 102/69 07/04/18 06:00 Pulse Ox 97 07/04/18 06:00 - Labs Result Diagrams: 07/04/18 06:00 07/04/18 06:00 Labs: Laboratory Results - last 24 hr 07/04/18 07/04/18 06:00 06:00 WBC 8.7 D RBC 4.61 Hgb 13.7 L Hct 40.8 L MCV 88.5 MCH 29.7 MCHC 33.6 RDW 13.2 Plt Count 198 MPV 10.5 Neut % (Auto) 57.5 Lymph % (Auto) 30.7 Thomas % (Auto) 8.7 H Eos % (Auto) 3.0 Baso % (Auto) 0.1 Lymph # (Auto) 2.7 Thomas # (Auto) 0.8 H Eos # (Auto) 0.3 Baso # (Auto) 0.01 Absolute Neuts (auto) 4.99 Sodium 138 Potassium 4.0 Chloride 105 Carbon Dioxide 28 Anion Gap 10 BUN 12 Creatinine 0.8 Est GFR ( Amer) > 60 Est GFR (Non-Af Amer) > 60 Random Glucose 108 Calcium 9.0 Phosphorus 3.0 Magnesium 2.1 Total Bilirubin 0.9 AST 38 ALT 33 Alkaline Phosphatase 72 Total Protein 7.2 Albumin 3.8 Globulin 3.4 Albumin/Globulin Ratio 1.1 - Imaging and Cardiology CT scan - abdomen Status: Image reviewed by me, Report reviewed by me Assessment & Plan - Assessment and Plan (Free Text) Assessment: 48 year old male presenting with abdominal pain, cholecystitis vs gastritis U/S shows cholelithiasis, no pericholecystic fluid, no gallbladder thickening, CBD 5.9 mm Plan: NPO IVF Pain control Anti-emetics Continue to monitor labs GI on board- recommends upper endoscopy r/o gastritis, ulcer Surgical intervention pending EGD findings Patient discussed with Dr. Amnada Astudillo, PGY-3 <José Patel - Last Filed: 07/04/18 19:18> Meds - Medications Medications: Current Medications Sodium Chloride (Sodium Chloride 0.9%) 1,000 mls @ 100 mls/hr IV .Q10H [facility] Last Admin: 07/04/18 11:01 Dose: 100 mls/hr Morphine Sulfate (Morphine) 2 mg IVP Q6H PRN PRN Reason: Pain, severe (8-10) Last Admin: 07/03/18 13:59 Dose: 2 mg Ondansetron HCl (Zofran Inj) 4 mg IVP Q4H PRN PRN Reason: Nausea/Vomiting Pantoprazole Sodium (Protonix Inj) 40 mg IVP DAILY [facility] Last Admin: 07/04/18 11:00 Dose: 40 mg Results - Vital Signs Recent Vital Signs: Last Vital Signs Temp 97.9 F 07/04/18 15:55 Pulse 72 07/04/18 16:40 Resp 18 07/04/18 16:40 BP 118/78 07/04/18 16:40 Pulse Ox 99 07/04/18 16:40 - Labs Result Diagrams: 07/04/18 06:00 07/04/18 06:00 Labs: Laboratory Results - last 24 hr 07/04/18 07/04/18 06:00 06:00 WBC 8.7 D RBC 4.61 Hgb 13.7 L Hct 40.8 L MCV 88.5 MCH 29.7 MCHC 33.6 RDW 13.2 Plt Count 198 MPV 10.5 Neut % (Auto) 57.5 Lymph % (Auto) 30.7 Thomas % (Auto) 8.7 H Eos % (Auto) 3.0 Baso % (Auto) 0.1 Lymph # (Auto) 2.7 Thomas # (Auto) 0.8 H Eos # (Auto) 0.3 Baso # (Auto) 0.01 Absolute Neuts (auto) 4.99 Sodium 138 Potassium 4.0 Chloride 105 Carbon Dioxide 28 Anion Gap 10 BUN 12 Creatinine 0.8 Est GFR ( Amer) > 60 Est GFR (Non-Af Amer) > 60 Random Glucose 108 Calcium 9.0 Phosphorus 3.0 Magnesium 2.1 Total Bilirubin 0.9 AST 38 ALT 33 Alkaline Phosphatase 72 Total Protein 7.2 Albumin 3.8 Globulin 3.4 Albumin/Globulin Ratio 1.1 Assessment & Plan - Assessment and Plan (Free Text) Plan: Patient was seen, evaluated and examined by me at the bedside. I agree with assessment and plan as stated in the resident's note.
--- NOTE | 2018-07-04 13:23 | CP.PCM.PN ---
<Washington Hutchinson - Last Filed: 07/04/18 13:19> Subjective - Date & Time of Evaluation Date of Evaluation: 07/04/18 Time of Evaluation: 07:40 - Subjective Subjective: Washington Hutchinson D.O. PGY-3, Internal Medicine Resident, Dr. Del Rio's Service, Progress Note 48-year-old male with a past medical history of gastritis who presented for complaints of abdominal pain. Patient was seen and examined at bedside. Still abdominal discomfort at times. No more nausea. Objective - Vital Signs/Intake and Output Vital Signs (last 24 hours): Temp Pulse Resp BP Pulse Ox 98.5 F 76 20 102/69 97 07/04/18 06:00 07/04/18 06:00 07/04/18 06:00 07/04/18 06:00 07/04/18 06:00 Intake and Output: 07/04/18 07/04/18 06:59 18:59 Intake Total 0 Balance 0 - Medications Medications: Current Medications Sodium Chloride (Sodium Chloride 0.9%) 1,000 mls @ 100 mls/hr IV .Q10H [facility] Last Admin: 07/04/18 11:01 Dose: 100 mls/hr Morphine Sulfate (Morphine) 2 mg IVP Q6H PRN PRN Reason: Pain, severe (8-10) Last Admin: 07/03/18 13:59 Dose: 2 mg Ondansetron HCl (Zofran Inj) 4 mg IVP Q4H PRN PRN Reason: Nausea/Vomiting Pantoprazole Sodium (Protonix Inj) 40 mg IVP DAILY [facility] Last Admin: 07/04/18 11:00 Dose: 40 mg - Labs Labs: 07/04/18 06:00 07/04/18 06:00 PT 11.6 SECONDS (9.4-12.5) 07/02/18 01:06 INR 1.05 07/02/18 01:06 APTT 37.2 Seconds (26.9-38.3) 07/02/18 01:06 - Constitutional Appears: Pleasant male, Non-toxic, No Acute Distress - Head Exam Head Exam: ATRAUMATIC, NORMOCEPHALIC - Eye Exam Eye Exam: EOMI, PERRL. absent: Scleral icterus - ENT Exam ENT Exam: Mucous Membranes Moist, Normal Oropharynx - Neck Exam Neck exam: Positive for: Normal Inspection. Negative for: Lymphadenopathy - Respiratory Exam Respiratory Exam: Clear to Auscultation Bilateral. absent: Rales, Rhonchi, Wheezes - Cardiovascular Exam Cardiovascular Exam: RRR, +S1, +S2. absent: Gallop, Rubs - GI/Abdominal Exam GI & Abdominal Exam: Normal Bowel Sounds, Soft, still with tenderness to RUQ palpation - Extremities Exam Extremities exam: Positive for: normal capillary refill. Negative for: calf tenderness, pedal edema - Neurological Exam Neurological exam: Alert, Oriented x3 - Psychiatric Exam Psychiatric exam: Normal Affect, Normal Mood - Skin Skin Exam: Dry, Warm Assessment and Plan - Assessment and Plan (Free Text) Assessment: 48-year-old male with a past medical history of gastritis who presented for complaints of abdominal pain. Plan: 1. Abdominal pain 2. Cholelithiasis 3. Diverticulosis without diverticulitis 4. Tobacco abuse Still with some discomfort. Gallbladder ultrasound revealed gallbladder dist ention with extensive cholelithiasis. Patient is n.p.o. at this time for endoscopy today by gastroenterology. Discussed case with gastroenterology team. Currently his pain continues to be well controlled with morphine. We will continue with his Protonix. Will obtain a surgical consultation. Will go and discuss with surgery team now. We will follow-up with patient after his endoscopy. Patient was seen and examined and case discussed at length with attending physician. <Shar Del Rio S - Last Filed: 07/04/18 16:20> Objective - Vital Signs/Intake and Output Vital Signs (last 24 hours): Temp Pulse Resp BP Pulse Ox 97.9 F 74 18 112/75 99 07/04/18 15:55 07/04/18 16:10 07/04/18 16:10 07/04/18 16:10 07/04/18 16:10 Intake and Output: 07/04/18 07/04/18 06:59 18:59 Intake Total 0 Balance 0 - Medications Medications: Current Medications Sodium Chloride (Sodium Chloride 0.9%) 1,000 mls @ 100 mls/hr IV .Q10H [facility] Last Admin: 07/04/18 11:01 Dose: 100 mls/hr Sodium Chloride (Sodium Chloride 0.9%) 1,000 mls @ 100 mls/hr IV .Q10H [facility] Stop: 07/04/18 17:59 Morphine Sulfate (Morphine) 2 mg IVP Q6H PRN PRN Reason: Pain, severe (8-10) Last Admin: 07/03/18 13:59 Dose: 2 mg Ondansetron HCl (Zofran Inj) 4 mg IVP Q4H PRN PRN Reason: Nausea/Vomiting Pantoprazole Sodium (Protonix Inj) 40 mg IVP DAILY [facility] Last Admin: 07/04/18 11:00 Dose: 40 mg - Labs Labs: 07/04/18 06:00 07/04/18 06:00 PT 11.6 SECONDS (9.4-12.5) 07/02/18 01:06 INR 1.05 07/02/18 01:06 APTT 37.2 Seconds (26.9-38.3) 07/02/18 01:06 Assessment and Plan - Assessment and Plan (Free Text) Plan: Pt seen and examined by me. I have reviewed the note of the medical voucher clerk and I agree with it. I have discussed the assessment and plan with the resident. I have reviewed the medications and the last labs. Pt had an endoscopy today and was found to have Gastritis. His abd pain is better. He is on Protonix. Surgical eval for elective cholecystectomy.
[2018-07-04] MEDS ORDERED: Propofol 10 mg/ml Inj (20 ML) ONE ×2 (15:40→15:52)
[2018-07-04] MEDS ORDERED: Simethicone 40 mg/0.6 ml Liquid (30 ml) ONE (15:48)
--- NOTE | 2018-07-05 07:30 | CP.PCM.PN ---
<Gurpreet Astudillo - Last Filed: 07/05/18 07:26> Subjective - Date & Time of Evaluation Date of Evaluation: 07/05/18 Time of Evaluation: 07:26 - Subjective Subjective: SURGERY NOTE FOR DR. PATEL 48M seen and examined at bedside this morning. No acute events overnight. Patient states that pain has lessened however still present. Patient had EGD done yesterday, with results showing gastritis. Patient denies any fevers, chills, nausea, vomiting, constipation, diarrhea. Objective - Vital Signs/Intake and Output Vital Signs (last 24 hours): Temp Pulse Resp BP Pulse Ox 98.5 F 72 18 113/76 96 07/04/18 21:21 07/04/18 21:21 07/04/18 21:21 07/04/18 21:21 07/04/18 21:21 - Medications Medications: Current Medications Sodium Chloride (Sodium Chloride 0.9%) 1,000 mls @ 100 mls/hr IV .Q10H [facility] Last Admin: 07/04/18 11:01 Dose: 100 mls/hr Morphine Sulfate (Morphine) 2 mg IVP Q6H PRN PRN Reason: Pain, severe (8-10) Last Admin: 07/03/18 13:59 Dose: 2 mg Ondansetron HCl (Zofran Inj) 4 mg IVP Q4H PRN PRN Reason: Nausea/Vomiting Pantoprazole Sodium (Protonix Inj) 40 mg IVP DAILY [facility] Last Admin: 07/04/18 11:00 Dose: 40 mg - Labs Labs: 07/04/18 06:00 07/04/18 06:00 PT 11.6 SECONDS (9.4-12.5) 07/02/18 01:06 INR 1.05 07/02/18 01:06 APTT 37.2 Seconds (26.9-38.3) 07/02/18 01:06 - Constitutional Appears: Non-toxic, No Acute Distress - Head Exam Head Exam: ATRAUMATIC, NORMOCEPHALIC - Eye Exam Eye Exam: EOMI, PERRL - ENT Exam ENT Exam: Mucous Membranes Moist. absent: Mucous Membranes Dry - Neck Exam Neck Exam: Full ROM - Respiratory Exam Respiratory Exam: NORMAL BREATHING PATTERN. absent: Accessory Muscle Use, Respiratory Distress - Cardiovascular Exam Cardiovascular Exam: REGULAR RHYTHM. absent: Bradycardia, Tachycardia - GI/Abdominal Exam GI & Abdominal Exam: Soft, Tenderness. absent: Guarding, Rigid, Rebound - Extremities Exam Extremities Exam: absent: Pedal Edema, Tenderness - Neurological Exam Neurological Exam: Alert, Oriented x3 - Skin Skin Exam: Dry, Intact, Normal Color, Warm Assessment and Plan - Assessment and Plan (Free Text) Assessment: 48M presents with right sided abdominal pain likely 2/2 gallbladder source s/p EGD which showed gastritis, which is a known past medical history Plan: - NPO after midnight - pain control - anti- emetics - antibiotics - pre-op patient for OR - Will plan for cholecystectomy tomorrow Discussed with Dr. Amanda Astudillo, PGY3 <José Patel - Last Filed: 07/05/18 15:49> Objective - Vital Signs/Intake and Output Vital Signs (last 24 hours): Temp Pulse Resp BP Pulse Ox 98.8 F 77 16 123/84 98 07/05/18 13:42 07/05/18 13:42 07/05/18 13:42 07/05/18 13:42 07/05/18 13:42 Intake and Output: 07/05/18 07/05/18 06:59 18:59 Intake Total 0 Balance 0 - Medications Medications: Current Medications Famotidine (Pepcid) 20 mg PO Q12H PRN PRN Reason: Dyspepsia Sodium Chloride (Sodium Chloride 0.9%) 1,000 mls @ 100 mls/hr IV .Q10H [facility] Last Admin: 07/04/18 11:01 Dose: 100 mls/hr Morphine Sulfate (Morphine) 2 mg IVP Q6H PRN PRN Reason: Pain, severe (8-10) Last Admin: 07/03/18 13:59 Dose: 2 mg Ondansetron HCl (Zofran Inj) 4 mg IVP Q4H PRN PRN Reason: Nausea/Vomiting - Labs Labs: 07/04/18 06:00 07/04/18 06:00 PT 11.6 SECONDS (9.4-12.5) 07/02/18 01:06 INR 1.05 07/02/18 01:06 APTT 37.2 Seconds (26.9-38.3) 07/02/18 01:06 Assessment and Plan - Assessment and Plan (Free Text) Plan: Patient was seen, evaluated and examined by me at the bedside. I agree with assessment and plan as stated in the resident's note.
--- NOTE | 2018-07-05 11:57 | CP.PCM.PN ---
<Aftab Guzman - Last Filed: 07/05/18 11:54> Subjective - Date & Time of Evaluation Date of Evaluation: 07/05/18 Time of Evaluation: 09:15 - Subjective Subjective: PGY6 GI Fellow Progress Note Patient seen and examined bedside this morning. The patient states that he is feeling better today and admits to improvement in RUQ abdominal pain. No nausea, vomiting. Tolerating diet. 12 system ROS performed and negative except where stated Objective - Vital Signs/Intake and Output Vital Signs (last 24 hours): Temp Pulse Resp BP Pulse Ox 98.5 F 67 20 144/69 97 07/05/18 06:00 07/05/18 06:00 07/05/18 06:00 07/05/18 06:00 07/05/18 06:00 Intake and Output: 07/05/18 07/05/18 06:59 18:59 Intake Total 0 Balance 0 - Medications Medications: Current Medications Sodium Chloride (Sodium Chloride 0.9%) 1,000 mls @ 100 mls/hr IV .Q10H [facility] Last Admin: 07/04/18 11:01 Dose: 100 mls/hr Morphine Sulfate (Morphine) 2 mg IVP Q6H PRN PRN Reason: Pain, severe (8-10) Last Admin: 07/03/18 13:59 Dose: 2 mg Ondansetron HCl (Zofran Inj) 4 mg IVP Q4H PRN PRN Reason: Nausea/Vomiting Pantoprazole Sodium (Protonix Inj) 40 mg IVP DAILY [facility] Last Admin: 07/05/18 09:51 Dose: 40 mg - Labs Labs: 07/04/18 06:00 07/04/18 06:00 PT 11.6 SECONDS (9.4-12.5) 07/02/18 01:06 INR 1.05 07/02/18 01:06 APTT 37.2 Seconds (26.9-38.3) 07/02/18 01:06 - Constitutional Appears: Non-toxic, No Acute Distress - Eye Exam Eye Exam: EOMI, PERRL - ENT Exam ENT Exam: Mucous Membranes Moist - Respiratory Exam Respiratory Exam: Clear to Ausculation Bilateral. absent: Rales, Rhonchi, Whe ezes - Cardiovascular Exam Cardiovascular Exam: RRR, +S1, +S2 - GI/Abdominal Exam GI & Abdominal Exam: Soft, Tenderness (mild RUQ), Normal Bowel Sounds. absent: Distended, Firm, Guarding, Rigid, Organomegaly - Extremities Exam Extremities Exam: Normal Inspection. absent: Pedal Edema - Neurological Exam Neurological Exam: Alert, Awake, Oriented x3 - Psychiatric Exam Psychiatric exam: Normal Affect, Normal Mood - Skin Skin Exam: Dry, Warm Assessment and Plan - Assessment and Plan (Free Text) Assessment: Patient is a 48yo male without significant medical history who presented with abdominal pain -Cholelithiasis, biliary colic Plan: -S/P EGD yesterday with minimal gastric erythema - biopsies taken and path pending -Plan for laparoscopic cholecystectomy tomorrow -Diet as tolerated and NPO past MN -Educated on lifestyle modifications regarding dyspepsia -Pepcid Q12H PRN <Etienne Vines V - Last Filed: 07/05/18 19:11> Objective - Vital Signs/Intake and Output Vital Signs (last 24 hours): Temp Pulse Resp BP Pulse Ox 98.8 F 77 16 123/84 98 07/05/18 13:42 07/05/18 13:42 07/05/18 13:42 07/05/18 13:42 07/05/18 13:42 Intake and Output: 07/05/18 07/06/18 18:59 06:59 Intake Total 0 Balance 0 - Medications Medications: Current Medications Famotidine (Pepcid) 20 mg PO Q12H PRN PRN Reason: Dyspepsia Sodium Chloride (Sodium Chloride 0.9%) 1,000 mls @ 100 mls/hr IV .Q10H [facility] Last Admin: 07/04/18 11:01 Dose: 100 mls/hr Morphine Sulfate (Morphine) 2 mg IVP Q6H PRN PRN Reason: Pain, severe (8-10) Last Admin: 07/03/18 13:59 Dose: 2 mg Ondansetron HCl (Zofran Inj) 4 mg IVP Q4H PRN PRN Reason: Nausea/Vomiting - Labs Labs: 07/04/18 06:00 07/04/18 06:00 PT 11.6 SECONDS (9.4-12.5) 07/02/18 01:06 INR 1.05 07/02/18 01:06 APTT 37.2 Seconds (26.9-38.3) 07/02/18 01:06 Attending/Attestation - Attestation I have personally seen and examined this patient.: Yes I have fully participated in the care of the patient.: Yes I have reviewed all pertinent clinical information, including history, physical exam and plan: Yes Notes (Text): This is an addendum to the GI progress note dictated by the fellow. The patient was seen and evaluated along with the fellow. Patient has some tenderness in the right upper quadrant. EGD report was discussed with the patient. Scheduled for laparoscopic cholecystectomy tomorrow 07/05/18 19:10
--- NOTE | 2018-07-05 14:40 | CP.PCM.PN ---
<Washington Hutchinson - Last Filed: 07/05/18 14:34> Subjective - Date & Time of Evaluation Date of Evaluation: 07/05/18 Time of Evaluation: 07:40 - Subjective Subjective: Washington Hutchinson D.O. PGY-3, Internal Medicine Resident, Dr. Del Rio's Service, Progress Note 48-year-old male with a past medical history of gastritis who presented for complaints of abdominal pain. Patient was seen and examined at bedside. Sometimes having abdominal pain still with protonix. No issues with endoscopy yesterday. Objective - Vital Signs/Intake and Output Vital Signs (last 24 hours): Temp Pulse Resp BP Pulse Ox 98.8 F 77 16 123/84 98 07/05/18 13:42 07/05/18 13:42 07/05/18 13:42 07/05/18 13:42 07/05/18 13:42 Intake and Output: 07/05/18 07/05/18 06:59 18:59 Intake Total 0 Balance 0 - Medications Medications: Current Medications Famotidine (Pepcid) 20 mg PO Q12H PRN PRN Reason: Dyspepsia Sodium Chloride (Sodium Chloride 0.9%) 1,000 mls @ 100 mls/hr IV .Q10H [facility] Last Admin: 07/04/18 11:01 Dose: 100 mls/hr Morphine Sulfate (Morphine) 2 mg IVP Q6H PRN PRN Reason: Pain, severe (8-10) Last Admin: 07/03/18 13:59 Dose: 2 mg Ondansetron HCl (Zofran Inj) 4 mg IVP Q4H PRN PRN Reason: Nausea/Vomiting - Labs Labs: 07/04/18 06:00 07/04/18 06:00 PT 11.6 SECONDS (9.4-12.5) 07/02/18 01:06 INR 1.05 07/02/18 01:06 APTT 37.2 Seconds (26.9-38.3) 07/02/18 01:06 - Constitutional Appears: Pleasant male, Non-toxic, No Acute Distress - Head Exam Head Exam: ATRAUMATIC, NORMOCEPHALIC - Eye Exam Eye Exam: EOMI, PERRL. absent: Scleral icterus - ENT Exam ENT Exam: Mucous Membranes Moist, Normal Oropharynx - Neck Exam Neck exam: Positive for: Normal Inspection - Respiratory Exam Respiratory Exam: Clear to Auscultation Bilateral. absent: Rales, Rhonchi, Wheezes - Cardiovascular Exam Cardiovascular Exam: RRR, +S1, +S2. absent: Gallop, Rubs - GI/Abdominal Exam GI & Abdominal Exam: Normal Bowel Sounds, Soft, still with tenderness to RUQ palpation - Extremities Exam Extremities exam: Positive for: normal capillary refill - Neurological Exam Neurological exam: Alert, Oriented x3 - Psychiatric Exam Psychiatric exam: Normal Affect, Normal Mood - Skin Skin Exam: Dry, Warm Assessment and Plan - Assessment and Plan (Free Text) Assessment: 48-year-old male with a past medical history of gastritis who presented for complaints of abdominal pain, found to have cholelithiasis Plan: 1. Abdominal pain likely 2/2 cholelithiasis 2. Diverticulosis without diverticulitis 3. Tobacco abuse Abdominal pain comes and goes. Endoscopy revealed some gastritis and we are pending biopsies for H. pylori. GI recommendations appreciated. Patient off Protonix and now famotidine twice daily. Discussed case with surgical team. Patient to go to the operating room tomorrow for removal of gallbladder. We will continue to control his pain with morphine. We will continue with IV hydration. Continue with antiemetics. We will re-evaluate tomorrow before surgery. Patient was seen and examined and case discussed at length with attending physician. <Shar Del Rio S - Last Filed: 07/05/18 17:19> Objective - Vital Signs/Intake and Output Vital Signs (last 24 hours): Temp Pulse Resp BP Pulse Ox 98.8 F 77 16 123/84 98 07/05/18 13:42 07/05/18 13:42 07/05/18 13:42 07/05/18 13:42 07/05/18 13:42 Intake and Output: 07/05/18 07/05/18 06:59 18:59 Intake Total 0 Balance 0 - Medications Medications: Current Medications Famotidine (Pepcid) 20 mg PO Q12H PRN PRN Reason: Dyspepsia Sodium Chloride (Sodium Chloride 0.9%) 1,000 mls @ 100 mls/hr IV .Q10H [facility] Last Admin: 07/04/18 11:01 Dose: 100 mls/hr Morphine Sulfate (Morphine) 2 mg IVP Q6H PRN PRN Reason: Pain, severe (8-10) Last Admin: 07/03/18 13:59 Dose: 2 mg Ondansetron HCl (Zofran Inj) 4 mg IVP Q4H PRN PRN Reason: Nausea/Vomiting - Labs Labs: 07/04/18 06:00 07/04/18 06:00 PT 11.6 SECONDS (9.4-12.5) 07/02/18 01:06 INR 1.05 07/02/18 01:06 APTT 37.2 Seconds (26.9-38.3) 07/02/18 01:06 Assessment and Plan - Assessment and Plan (Free Text) Plan: Patient was seen and examined by me. I have reviewed the note of the medical education specialist and have gone over the plan of care. I agree with the note. I have reviewed the medications and the last labs.
--- NOTE | 2018-07-05 21:26 | PN ---
DATE: 07/05/2018 The patient was seen and examined. I do agree with the note of the medical pathologist. I was involved in the plan of care. The patient has abdominal pain. He has cholelithiasis and he is going for procedure tomorrow. He is going to have a cholecystectomy by Dr. Patel. I did speak with Dr. Patel regarding the case today. The patient has gastritis. He has history of tobacco use. We advised to quit. The patient is having better control of his pain. He is able to ambulate. He is currently taking Pepcid. He is on Zofran as needed. He is on a liquid diet. Shar Del Rio MD
[2018-07-06 06:49] LABS: HEMOGLOBIN 12.3 g/dL (14.0-18.0); MEAN CELL VOLUME 88.9 fl (80.0-105.0); MEAN CORPUSCULAR HEMOGLOBIN 29.6 pg (25.0-35.0); MEAN CORPUSCULAR HGB CONC 33.3 g/dl (31.0-37.0); MEAN PLATELET VOLUME 10.1 fl (7.0-11.0); RBC 4.15 10^6/uL (3.5-6.1); WHITE BLOOD COUNT 6.9 10^3/uL (4.5-11.0)
[2018-07-06 07:22] LABS: ALB/GLOB RATIO 1.1 (1.1-1.8); ALBUMIN 3.4 g/dL (3.0-4.8); ALT/SGPT 31 U/L (7-56); AST/SGOT 35 U/L (17-59); BLOOD UREA NITROGEN 9 mg/dL (7-21); CALCIUM 8.5 mg/dL (8.4-10.5); GFR NON-AFRICAN AMERICAN > 60
[2018-07-06] MEDS ORDERED: Bupivacaine 0.5% 50 ML IJ ONE ×2 (09:36→10:47)
[2018-07-06] MEDS ORDERED: Iohexol 240 (50 ml) ONE (09:36)
[2018-07-06] MEDS ORDERED: Rocuronium 10 mg/ml (5 ml) ONE (09:53)
[2018-07-06] MEDS ORDERED: Midazolam 2 MG/2 ML VIAL ONE (09:53)
[2018-07-06] MEDS ORDERED: Propofol 10 mg/ml Inj (20 ML) ONE (09:53)
[2018-07-06] MEDS ORDERED: Succinylcholine 200 mg/10 ml Inj IV ONE (10:31)
[2018-07-06] MEDS ORDERED: CeFAZolin 1 gm in NS 100ml IVPB ONE (10:40)
[2018-07-06] MEDS ORDERED: Esmolol 100 mg/10ml Inj IV ONE ×2 (10:52→11:21)
--- NOTE | 2018-07-06 10:53 | CP.PCM.PN ---
<Washington Hutchinson - Last Filed: 07/06/18 10:49> Subjective - Date & Time of Evaluation Date of Evaluation: 07/06/18 Time of Evaluation: 07:30 - Subjective Subjective: Washington Hutchinson D.O. PGY-3, Internal Medicine Resident, Dr. Del Rio's Service, Progress Note 48-year-old male with a past medical history of gastritis who presented for complaints of abdominal pain. Patient was seen and examined at bedside. Patient eager to have surgery so he can feel better. Had some more discomfort last night. Objective - Vital Signs/Intake and Output Vital Signs (last 24 hours): Temp Pulse Resp BP Pulse Ox 98.7 F 73 20 115/80 96 07/06/18 10:04 07/06/18 10:04 07/06/18 10:04 07/06/18 10:04 07/06/18 10:04 Intake and Output: 07/06/18 07/06/18 06:59 18:59 Intake Total 660 Output Total 1100 Balance -440 - Medications Medications: Current Medications Famotidine (Pepcid) 20 mg PO Q12H PRN PRN Reason: Dyspepsia Last Admin: 07/05/18 20:13 Dose: 20 mg Sodium Chloride (Sodium Chloride 0.9%) 1,000 mls @ 100 mls/hr IV .Q10H SID Last Admin: 07/04/18 11:01 Dose: 100 mls/hr Morphine Sulfate (Morphine) 2 mg IVP Q6H PRN PRN Reason: Pain, severe (8-10) Last Admin: 07/03/18 13:59 Dose: 2 mg Ondansetron HCl (Zofran Inj) 4 mg IVP Q4H PRN PRN Reason: Nausea/Vomiting - Labs Labs: 07/06/18 06:20 07/06/18 06:20 PT 11.6 SECONDS (9.4-12.5) 07/02/18 01:06 INR 1.05 07/02/18 01:06 APTT 37.2 Seconds (26.9-38.3) 07/02/18 01:06 - Constitutional Appears: Pleasant male, Non-toxic, No Acute Distress - Head Exam Head Exam: ATRAUMATIC, NORMOCEPHALIC - Eye Exam Eye Exam: EOMI, PERRL. absent: Scleral icterus - ENT Exam ENT Exam: Mucous Membranes Moist, Normal Oropharynx - Neck Exam Neck exam: Positive for: Normal Inspection - Respiratory Exam Respiratory Exam: Clear to Auscultation Bilateral. absent: Rales, Rhonchi, Wheezes - Cardiovascular Exam Cardiovascular Exam: RRR, +S1, +S2. absent: Gallop, Rubs - GI/Abdominal Exam GI & Abdominal Exam: Normal Bowel Sounds, Soft, still with tenderness to RUQ palpation - Extremities Exam Extremities exam: Positive for: normal capillary refill - Neurological Exam Neurological exam: Alert, Oriented x3 - Psychiatric Exam Psychiatric exam: Normal Affect, Normal Mood - Skin Skin Exam: Dry, Warm Assessment and Plan - Assessment and Plan (Free Text) Assessment: 48-year-old male with a past medical history of gastritis who presented for complaints of abdominal pain, found to have cholelithiasis Plan: 1. Abdominal pain 2/2 cholelithiasis 2. Diverticulosis without diverticulitis 3. Tobacco abuse Patient scheduled for cholecystectomy today with surgery. Will discuss with surgical team. Still pending biopsies for H. pylori after his endoscopy. Co ntinue with famotidine twice daily as needed. Will evaluate patient after surgery. Continue with IV hydration and antiemetics as needed. Continue to encourage tobacco cessation. Patient was seen and examined and case discussed at length with attending physician. <Shar Del Rio S - Last Filed: 07/07/18 19:22> Objective - Vital Signs/Intake and Output Vital Signs (last 24 hours): Temp Pulse Resp BP Pulse Ox 98.4 F 99 H 18 111/72 96 07/06/18 14:00 07/06/18 14:00 07/06/18 14:00 07/06/18 14:00 07/06/18 14:00 - Labs Labs: 07/06/18 06:20 07/06/18 06:20 PT 11.6 SECONDS (9.4-12.5) 07/02/18 01:06 INR 1.05 07/02/18 01:06 APTT 37.2 Seconds (26.9-38.3) 07/02/18 01:06 Assessment and Plan - Assessment and Plan (Free Text) Plan: Pt seen and examined by me. I have reviewed the note of the medical record administrator and I agree with it. I have discussed the assessment and plan with the resident. I have reviewed the medications and the last labs. Pt is going for surgery today for cholecystectomy. He is comfortable. He is on IV hydration.
[2018-07-06] MEDS ORDERED: ePHEDrine 50 mg/ml Inj ONE (11:05)
[2018-07-06] MEDS ORDERED: Glycopyrrolate 0.2 mg/ml (2ml vial) ONE (11:06)
[2018-07-06] MEDS ORDERED: Neostigmine Methylsulfate 3mg/3ml Syringe IV ONE (11:06)
[2018-07-06] MEDS ORDERED: Sevoflurane - Inhalation Anesthetic Liq (250 ml) ONE (11:16)
[2018-07-06] MEDS ORDERED: Phenylephrine 10 mg/ml Inj ONE (11:44)
[2018-07-06] MEDS ORDERED: HYDROmorphone 1 mg/ml ISec IVP PRN (12:28)
[2018-07-06] MEDS ORDERED: Lactated Ringer's 1,000 ML IV SCH (12:30)
[2018-07-06] MEDS ORDERED: Oxycodone/Acetaminophen 5/325 mg Tab PO PRN (12:31)
--- NOTE | 2018-07-06 12:31 | PCM.SURG1 ---
Surgeon's Initial Post Op Note - Surgeon's Notes Surgeon: Dr. Patel Movable Bulkhead Installer: Dr. Zimmerman PGY3 Type of Anesthesia: General Endo Pre-Operative Diagnosis: cholelithiasis, biliary cholic Operative Findings: see dictation Post-Operative Diagnosis: gangrenous gallbladder; chronic cholecystitis Operation Performed: laparoscopic cholecystectoym w/ IOC Specimen/Specimens Removed: gallbladder Estimated Blood Loss: EBL {In ML}: 10 Blood Products Given: N/A Drains Used: No Drains Post-Op Condition: Good Date of Surgery/Procedure: 07/06/18 Time of Surgery/Procedure: 12:30
[2018-07-06] MEDS ORDERED: HYDROmorphone 1 mg/ml ISec IVP ONE ×4 (12:40→13:25)
[2018-07-06] MEDS ORDERED: HYDROmorphone 1 mg/ml ISec ONE ×4 (12:43→13:30)
--- NOTE | 2018-07-06 13:50 | CP.PCM.PN ---
<Aftab Guzman - Last Filed: 07/06/18 13:44> Subjective - Date & Time of Evaluation Date of Evaluation: 07/06/18 Time of Evaluation: 07:45 - Subjective Subjective: PGY6 GI Fellow Progress Note Patient seen and examined bedside this morning. The patient states he is feeling much better overall but continues to have dull RUQ abdominal discomfort. No events overnight. 12 system ROS performed and negative except where stated Objective - Vital Signs/Intake and Output Vital Signs (last 24 hours): Temp Pulse Resp BP Pulse Ox 97.6 F 85 20 95/58 L 99 07/06/18 13:25 07/06/18 13:25 07/06/18 13:25 07/06/18 13:25 07/06/18 13:25 Intake and Output: 07/06/18 07/06/18 06:59 18:59 Intake Total 660 0 Output Total 1100 Balance -440 0 - Medications Medications: Current Medications Acetaminophen (Tylenol 325mg Tab) 650 mg PO Q4H PRN PRN Reason: Pain, Mild (1-3) Famotidine (Pepcid) 20 mg PO Q12H PRN PRN Reason: Dyspepsia Last Admin: 07/05/18 20:13 Dose: 20 mg Hydromorphone HCl (Dilaudid) 1 mg IVP Q15M PRN PRN Reason: Pain, Moderate/Severe (4-10) Stop: 07/06/18 14:28 Sodium Chloride (Sodium Chloride 0.9%) 1,000 mls @ 100 mls/hr IV .Q10H SID Last Admin: 07/04/18 11:01 Dose: 100 mls/hr Lactated Ringer's (Lactated Ringer's) 1,000 mls @ 75 mls/hr IV .[id number] SID Stop: 07/06/18 14:31 Morphine Sulfate (Morphine) 2 mg IVP Q6H PRN PRN Reason: Pain, severe (8-10) Last Admin: 07/03/18 13:59 Dose: 2 mg Ondansetron HCl (Zofran Inj) 4 mg IVP Q4H PRN PRN Reason: Nausea/Vomiting Ondansetron HCl (Zofran Inj) 4 mg IVP ONCE PRN PRN Reason: Nausea/Vomiting Oxycodone/Acetaminophen (Percocet 5/325 Mg Tab) 1 tab PO Q4H PRN PRN Reason: Pain, moderate (4-7) Stop: 07/09/18 12:32 - Labs Labs: 07/06/18 06:20 07/06/18 06:20 PT 11.6 SECONDS (9.4-12.5) 07/02/18 01:06 INR 1.05 07/02/18 01:06 APTT 37.2 Seconds (26.9-38.3) 07/02/18 01:06 - Constitutional Appears: Non-toxic, No Acute Distress - Eye Exam Eye Exam: EOMI, PERRL - ENT Exam ENT Exam: Mucous Membranes Moist - Respiratory Exam Respiratory Exam: Clear to Ausculation Bilateral. absent: Rales, Rhonchi, Wheezes - Cardiovascular Exam Cardiovascular Exam: RRR, +S1, +S2 - GI/Abdominal Exam GI & Abdominal Exam: Soft, Tenderness (RUQ), Normal Bowel Sounds. absent: Distended, Firm, Guarding, Rigid, Mass - Extremities Exam Extremities Exam: Normal Inspection. absent: Pedal Edema - Neurological Exam Neurological Exam: Alert, Awake, Oriented x3 - Psychiatric Exam Psychiatric exam: Normal Affect, Normal Mood - Skin Skin Exam: Dry, Warm Assessment and Plan - Assessment and Plan (Free Text) Assessment: Patient is a 48yo male without significant medical history who presented with abdominal pain -Cholelithiasis, biliary colic Plan: -S/P EGD, path pending -Lap cholecystectomy today -Diet as tolerated, advance per surgery -Educated on lifestyle modifications regarding dyspepsia -Pepcid Q12H PRN <Mohinder,Kovil V - Last Filed: 07/07/18 11:20> Objective - Vital Signs/Intake and Output Vital Signs (last 24 hours): Temp Pulse Resp BP Pulse Ox 98.4 F 99 H 18 111/72 96 07/06/18 14:00 07/06/18 14:00 07/06/18 14:00 07/06/18 14:00 07/06/18 14:00 - Labs Labs: 07/06/18 06:20 07/06/18 06:20 PT 11.6 SECONDS (9.4-12.5) 07/02/18 01:06 INR 1.05 07/02/18 01:06 APTT 37.2 Seconds (26.9-38.3) 07/02/18 01:06 Attending/Attestation - Attestation I have personally seen and examined this patient.: Yes I have fully participated in the care of the patient.: Yes I have reviewed all pertinent clinical information, including history, physical exam and plan: Yes Notes (Text): This is a delayed addendum to the progress report dictated by the GI fellow. Pathology report was reviewed H. pylori gastritis. Patient had a lap samira now. It is reasonable thing is to treat the H. pylori electively. Advised to follow-up in our office. 07/07/18 11:19
--- NOTE | 2018-07-06 14:54 | OP ---
PROCEDURE DATE: 07/06/2018 SURGEON: José Patel MD PATTERN FITTER: Carolyn Zimmerman DO, PGY-3. TYPE OF ANESTHESIA: General. ANESTHESIOLOGIST: Dr. Junior. PREOPERATIVE DIAGNOSIS: Biliary colic and cholelithiasis. POSTOPERATIVE DIAGNOSIS: Chronic cholecystitis and gangrenous gallbladder. OPERATION PERFORMED: Laparoscopic cholecystectomy with intraoperative cholangiogram. SPECIMEN: Gallbladder. ESTIMATED BLOOD LOSS: 10 mL. DATE OF OPERATION: 07/06/2018 DESCRIPTION OF PROCEDURE: After consent was obtained, the patient was taken to the operating room and placed supine on the operating table. General anesthesia was induced, at which time the patient was prepped and draped in the usual sterile fashion. A time-out was performed verifying correct patient, procedure, site, and positioning. An incision was made in the natural skin line below the umbilicus and carried down to the fascia. The fascia was then elevated using 2 towel clamps and a Veress needle was inserted through the umbilical stalk. Proper positioning of the Veress needle was confirmed by saline meniscus test. The abdomen was then insufflated with carbon dioxide to a pressure of 12 mmHg which the patient tolerated well. A 12-mm trocar was then inserted through the umbilical incision. The laparoscope was inserted and the abdomen was inspected. No injuries from initial trocar placement were noted. An additional 5 mm trocar was then inserted in the right epigastrium under direct visualization. The patient was then placed in reverse Trendelenburg and positioned with the right side up. Omental adhesions were bluntly dissected off the fundus of the gallbladder. An atraumatic grasper was used to grasp the gallbladder and retract it upwards allowing continued dissection of the omentum and adhesions off the gallbladder down to Calot's triangle. The atraumatic grasper was then used to grasp the infundibulum of the gallbladder and using both the [place] as well as the suction air defense artillery officer, the presumptive cystic duct was dissected. At this time, we encountered some general oozing that was suspected to be from peritoneal fat. During further cleaning of the presumptive cystic duct, there was an additional structure that seemed to be incongruous with our positioning, at which time the gallbladder was re-grasped and peritoneal fat closer to the gallbladder was dissected off finding the true cystic duct. A clip was placed proximal to the gallbladder, and a small beto was made in the new presumptive cystic duct allowing the cholangiogram catheter to be placed. The catheter was flushed with saline with no resistance. Upon flushing the contrast, it noted that we were indeed in the cystic duct with contrast flowing up towards the hepatic ducts as well as down into the small bowel. Imaging was saved for review, at which time the cholangiogram catheter was removed and two proximal clips were applied to the now identified cystic duct, ligating the duct. The cystic artery was next isolated and triply clipped, one distal, two proximal, and cut. Then, using the spatula and electrocautery, the gallbladder was dissected off of the liver fossa, making sure to obtain hemostasis throughout the entire dissection. Once the gallbladder was removed, the fossa was irrigated ensuring that there was no arterial or cystic stump leakage. The working laparoscope was exchanged for a 5 mm laparoscope allowing the EndoCatch bag to be inserted through the umbilical port. The gallbladder was placed into the bag and removed via the umbilicus. It was necessary to extend our skin incision as well as cut the underlying abdominal fascia to allow removal of gallbladder, at which time the gallbladder was passed off the field for pathology. The umbilical port was reinserted into the port site and the abdomen was once again inspected for any bleeding, none of which was found. The trocars were removed under direct visualization and no bleeding was noted from either of the trocar site. The abdomen was allowed to collapse, and the fascia of the umbilical port was closed using a running 0 Vicryl suture. The umbilical port was closed in two layers using a deep interrupted 3-0 Vicryl stitch to reapproximate the umbilicus and the skin was closed using a running 4-0 Monocryl. The subxiphoid port was closed using a single interrupted 4-0 Monocryl stitch. Dermabond was applied to the skin incision. The patient tolerated the procedure well, was extubated in the OR and taken to PACU in stable condition. Carolyn Flick, DO José Patel MD [facility] # [id number] [id number]
[2018-07-06 15:38] VITALS: BP 111/72; PULSE 99; RESP 18; TEMP 98.4; O2SAT 96
--- NOTE | 2018-07-06 18:47 | RAD ---
Date of service: 07/06/2018 PROCEDURE: Intraoperative cholangiogram HISTORY: R/O OBSTRUCTION COMPARISON: None TECHNIQUE: Total fluoroscopic time (continuous mode) utilized during the procedure 25.2 seconds. FINDINGS: Total exam DLP: 5.27 (mGy). IMPRESSION: Submitted images from the current procedure: 4.0
--- NOTE | 2018-07-07 23:03 | CP.PCM.DIS ---
<Washington Hutchinson - Last Filed: 07/07/18 22:59> Provider - Provider Date of Admission: 07/03/18 09:30 Attending physician: Shar Del Rio MD Consults: 07/02/18 08:26 Gastroenterology Consult Routine Comment: Consulting Provider: Etienne Vines V Consulting Physician: Etienne Vines V Reason for Consult: Abd pain, gastritis history, tobacco 07/04/18 08:11 Consult [Physician Consult] Routine Comment: Consulting Provider: José Patel Consulting Physician: José Patel Reason for Consult: gallstones Time Spent in preparation of Discharge (in minutes): 50 Diagnosis - Discharge Diagnosis (1) Cholelithiasis Status: Acute (2) Abdominal pain Status: Acute Hospital Course - Lab Results Lab Results: Micro Results 07/02/18 03:20 Blood-Venous Blood Culture - Final NO GROWTH AFTER 5 DAYS 07/02/18 03:20 Blood-Venous Gram Stain - Final TEST NOT PERFORMED 07/02/18 03:00 Blood-Venous Blood Culture - Final NO GROWTH AFTER 5 DAYS 07/02/18 03:00 Blood-Venous Gram Stain - Final TEST NOT PERFORMED Most Recent Lab Values WBC 6.9 10^3/uL (4.5-11.0) D 07/06/18 06:20 RBC 4.15 10^6/uL (3.5-6.1) 07/06/18 06:20 Hgb 12.3 g/dL (14.0-18.0) L 07/06/18 06:20 Hct 36.9 % (42.0-52.0) L 07/06/18 06:20 MCV 88.9 fl (80.0-105.0) 07/06/18 06:20 MCH 29.6 pg (25.0-35.0) 07/06/18 06:20 MCHC 33.3 g/dl (31.0-37.0) 07/06/18 06:20 RDW 13.0 % (11.5-14.5) 07/06/18 06:20 Plt Count 213 10^3/uL (120.0-450.0) 07/06/18 06:20 MPV 10.1 fl (7.0-11.0) 07/06/18 06:20 Neut % (Auto) 57.5 % (50.0-68.0) 07/04/18 06:00 Lymph % (Auto) 30.7 % (22.0-35.0) 07/04/18 06:00 Meagher % (Auto) 8.7 % (1.0-6.0) H 07/04/18 06:00 Eos % (Auto) 3.0 % (1.5-5.0) 07/04/18 06:00 Baso % (Auto) 0.1 % (0.0-3.0) 07/04/18 06:00 Lymph # (Auto) 2.7 (1.2-3.4) 07/04/18 06:00 Meagher # (Auto) 0.8 (0.1-0.6) H 07/04/18 06:00 Eos # (Auto) 0.3 (0.0-0.7) 07/04/18 06:00 Baso # (Auto) 0.01 K/mm3 (0.0-2.0) 07/04/18 06:00 Absolute Neuts (auto) 4.99 (1.4-6.5) 07/04/18 06:00 PT 11.6 SECONDS (9.4-12.5) 07/02/18 01:06 INR 1.05 07/02/18 01:06 APTT 37.2 Seconds (26.9-38.3) 07/02/18 01:06 pO2 49 mm/Hg (30-55) 07/02/18 03:15 VBG pH 7.31 (7.32-7.43) L 07/02/18 03:15 VBG pCO2 54.0 (40-60) 07/02/18 03:15 VBG HCO3 27.2 mmol/l (21-28) 07/02/18 03:15 VBG Total CO2 28.9 mmol.L (22-28) H 07/02/18 03:15 VBG O2 Sat (Calc) 84.7 % (40-65) H 07/02/18 03:15 VBG Base Excess 0.0 mmol/L (0.0-2.0) 07/02/18 03:15 VBG Potassium 3.7 mmol/L (3.6-5.2) 07/02/18 03:15 Sodium 140.0 mmol/L (132-148) 07/02/18 03:15 Chloride 107.0 mmol/L (98-107) 07/02/18 03:15 Glucose 134 mg/dl (75-110) H 07/02/18 03:15 Lactate 0.9 mmol/L (0.7-2.1) 07/02/18 03:15 FiO2 21.0 % 07/02/18 03:15 Sodium 137 mmol/L (132-148) 07/06/18 06:20 Potassium 3.8 mmol/L (3.6-5.0) 07/06/18 06:20 Chloride 105 mmol/L (98-107) 07/06/18 06:20 Carbon Dioxide 28 mmol/L (21-33) 07/06/18 06:20 Anion Gap 8 (10-20) L 07/06/18 06:20 BUN 9 mg/dL (7-21) 07/06/18 06:20 Creatinine 0.7 mg/dl (0.8-1.5) L 07/06/18 06:20 Est GFR ( Amer) > 60 07/06/18 06:20 Est GFR (Non-Af Amer) > 60 07/06/18 06:20 Random Glucose 105 mg/dL (70-110) 07/06/18 06:20 Calcium 8.5 mg/dL (8.4-10.5) 07/06/18 06:20 Phosphorus 3.9 mg/dL (2.5-4.5) 07/06/18 06:20 Magnesium 1.9 mg/dL (1.7-2.2) 07/06/18 06:20 Total Bilirubin 1.0 mg/dL (0.2-1.3) 07/06/18 06:20 AST 35 U/L (17-59) 07/06/18 06:20 ALT 31 U/L (7-56) 07/06/18 06:20 Alkaline Phosphatase 72 U/L (38-126) 07/06/18 06:20 Lactate Dehydrogenase 589 U/L (333-699) 07/02/18 01:06 Total Creatine Kinase 481 U/L (35-230) H 07/02/18 01:06 CK-MB (CK-2) 5.4 ng/mL (0.0-3.6) H 07/02/18 01:06 CK-MB (CK-2) % 1.1 % (2.5-3.0) L 07/02/18 01:06 Troponin I < 0.01 ng/mL 07/02/18 01:06 Total Protein 6.5 g/dL (5.8-8.3) 07/06/18 06:20 Albumin 3.4 g/dL (3.0-4.8) 07/06/18 06:20 Globulin 3.1 gm/dL 07/06/18 06:20 Albumin/Globulin Ratio 1.1 (1.1-1.8) 07/06/18 06:20 Amylase 73 U/L (35-125) 07/02/18 01:06 Lipase 121 U/L (23-300) 07/02/18 01:06 Venous Blood Potassium 3.7 mmol/L (3.6-5.2) 07/02/18 03:15 Urine Color Yellow (YELLOW) 07/02/18 13:15 Urine Appearance Clear (CLEAR) 07/02/18 13:15 Urine pH 7.0 (4.7-8.0) 07/02/18 13:15 Ur Specific Decker 1.015 (1.005-1.035) 07/02/18 13:15 Urine Protein Negative mg/dL (<30 mg/dL) 07/02/18 13:15 Urine Glucose (UA) Negative mg/dL (NEGATIVE) 07/02/18 13:15 Urine Ketones Negative mg/dL (NEGATIVE) 07/02/18 13:15 Urine Blood Negative (NEGATIVE) 07/02/18 13:15 Urine Nitrate Negative (NEGATIVE) 07/02/18 13:15 Urine Bilirubin Negative (NEGATIVE) 07/02/18 13:15 Urine Urobilinogen 4.0 E.U./dL (<1 E.U./dL) H 07/02/18 13:15 Ur Leukocyte Esterase Negative Pelon/uL (NEGATIVE) 07/02/18 13:15 Blood Type O POSITIVE 07/06/18 06:20 Blood Type Confirm O POSITIVE 07/06/18 08:10 Antibody Screen Negative 07/06/18 06:20 BBK History Checked No verified bt 07/06/18 06:20 - Hospital Course Hospital Course: Washington Hutchinson D.O. PGY-3, Internal Medicine Resident, Dr. Del Rio's Service, Discharge Summary 48-year-old male with a past medical history of gastritis who presented for complaints of abdominal pain. Patient was brought in for evaluation. Patient's pain was managed with morphine. His nausea was managed with zofran and he was also stared on protonix. Patient had a CXR which showed no active disease. Patient also had an abd/pelvis CT which showed diverticulosis but no diverticulitis. GI was requested to see patient. Patient had GB US which showed presence of multiple stones. Patient underwent EGD which showed gastritis and biopsies were sent for H pylori. Patient was evaluated by surgery and was taken for cholecystectomy today. Patient underwent procedure well. Refer to today's progress note. Patient was re-evaluated and found to be doing much better. Script for famotidine written and sent to pharmacy. All questions welcomed and answered to his verbal satisfaction and his who was present at bedside. Follow up instructions given. - Date & Time of H&P Date of H&P: 07/06/18 Time of H&P: 19:00 Discharge Exam - Head Exam Head Exam: ATRAUMATIC, NORMOCEPHALIC - Eye Exam Additional comments: no icterus, EOMI, PERRL - ENT Exam ENT Exam: Mucous Membranes Moist, Normal Oropharynx - Neck Exam Neck exam: Positive for: Normal Inspection - Respiratory Exam Respiratory Exam: Clear to Auscultation Bilateral. absent: Rales, Rhonchi, Wheezes - Cardiovascular Exam Cardiovascular Exam: RRR, +S1, +S2. absent: Gallop, Rubs - GI/Abdominal Exam GI & Abdominal Exam: Normal Bowel Sounds, Soft, still with tenderness to RUQ palpation - Extremities Exam Extremities exam: Positive for: normal capillary refill - Neurological Exam Neurological exam: Alert, Oriented x3 - Psychiatric Exam Psychiatric exam: Normal Affect, Normal Mood - Skin Skin Exam: Dry, Warm Discharge Plan - Discharge Medications Prescriptions: Famotidine [Pepcid] 20 mg PO Q12H PRN #60 tab PRN Reason: Dyspepsia - Follow Up Plan Condition: FAIR Disposition: HOME/ ROUTINE Instructions: How to Prevent Surgical Site Infections, Surgical Wound (DC), Acute Abdomen (Belly Pain), Adult (DC), Nausea and Vomiting, Adult (DC), How to Prevent Blood Clots, Managing Pain After Surgery, Cholecystitis (DC), Cholecystitis (GEN), Acute Abdominal Pain (DC), Acute Abdominal Pain (GEN) Additional Instructions: You have been discharged from [facility]. 1. Follow up with PMD 1-2 weeks. 2. Follow up with surgery and GI as indicated. 3. Maintain hydration. <Shar Del Rio - Last Filed: 07/08/18 15:21> Provider - Provider Date of Admission: 07/03/18 09:30 Attending physician: Shar Del Rio MD Consults: 07/02/18 08:26 Gastroenterology Consult Routine Comment: Consulting Provider: Etienne Vines V Consulting Physician: Etienne Vines V Reason for Consult: Abd pain, gastritis history, tobacco 07/04/18 08:11 Consult [Physician Consult] Routine Comment: Consulting Provider: José Patel Consulting Physician: José Patel Reason for Consult: gallstones Hospital Course - Lab Results Lab Results: Micro Results 07/02/18 03:20 Blood-Venous Blood Culture - Final NO GROWTH AFTER 5 DAYS 07/02/18 03:20 Blood-Venous Gram Stain - Final TEST NOT PERFORMED 07/02/18 03:00 Blood-Venous Blood Culture - Final NO GROWTH AFTER 5 DAYS 07/02/18 03:00 Blood-Venous Gram Stain - Final TEST NOT PERFORMED Most Recent Lab Values WBC 6.9 10^3/uL (4.5-11.0) D 07/06/18 06:20 RBC 4.15 10^6/uL (3.5-6.1) 07/06/18 06:20 Hgb 12.3 g/dL (14.0-18.0) L 07/06/18 06:20 Hct 36.9 % (42.0-52.0) L 07/06/18 06:20 MCV 88.9 fl (80.0-105.0) 07/06/18 06:20 MCH 29.6 pg (25.0-35.0) 07/06/18 06:20 MCHC 33.3 g/dl (31.0-37.0) 07/06/18 06:20 RDW 13.0 % (11.5-14.5) 07/06/18 06:20 Plt Count 213 10^3/uL (120.0-450.0) 07/06/18 06:20 MPV 10.1 fl (7.0-11.0) 07/06/18 06:20 Neut % (Auto) 57.5 % (50.0-68.0) 07/04/18 06:00 Lymph % (Auto) 30.7 % (22.0-35.0) 07/04/18 06:00 Meagher % (Auto) 8.7 % (1.0-6.0) H 07/04/18 06:00 Eos % (Auto) 3.0 % (1.5-5.0) 07/04/18 06:00 Baso % (Auto) 0.1 % (0.0-3.0) 07/04/18 06:00 Lymph # (Auto) 2.7 (1.2-3.4) 07/04/18 06:00 Meagher # (Auto) 0.8 (0.1-0.6) H 07/04/18 06:00 Eos # (Auto) 0.3 (0.0-0.7) 07/04/18 06:00 Baso # (Auto) 0.01 K/mm3 (0.0-2.0) 07/04/18 06:00 Absolute Neuts (auto) 4.99 (1.4-6.5) 07/04/18 06:00 PT 11.6 SECONDS (9.4-12.5) 07/02/18 01:06 INR 1.05 07/02/18 01:06 APTT 37.2 Seconds (26.9-38.3) 07/02/18 01:06 pO2 49 mm/Hg (30-55) 07/02/18 03:15 VBG pH 7.31 (7.32-7.43) L 07/02/18 03:15 VBG pCO2 54.0 (40-60) 07/02/18 03:15 VBG HCO3 27.2 mmol/l (21-28) 07/02/18 03:15 VBG Total CO2 28.9 mmol.L (22-28) H 07/02/18 03:15 VBG O2 Sat (Calc) 84.7 % (40-65) H 07/02/18 03:15 VBG Base Excess 0.0 mmol/L (0.0-2.0) 07/02/18 03:15 VBG Potassium 3.7 mmol/L (3.6-5.2) 07/02/18 03:15 Sodium 140.0 mmol/L (132-148) 07/02/18 03:15 Chloride 107.0 mmol/L (98-107) 07/02/18 03:15 Glucose 134 mg/dl (75-110) H 07/02/18 03:15 Lactate 0.9 mmol/L (0.7-2.1) 07/02/18 03:15 FiO2 21.0 % 07/02/18 03:15 Sodium 137 mmol/L (132-148) 07/06/18 06:20 Potassium 3.8 mmol/L (3.6-5.0) 07/06/18 06:20 Chloride 105 mmol/L (98-107) 07/06/18 06:20 Carbon Dioxide 28 mmol/L (21-33) 07/06/18 06:20 Anion Gap 8 (10-20) L 07/06/18 06:20 BUN 9 mg/dL (7-21) 07/06/18 06:20 Creatinine 0.7 mg/dl (0.8-1.5) L 07/06/18 06:20 Est GFR ( Amer) > 60 07/06/18 06:20 Est GFR (Non-Af Amer) > 60 07/06/18 06:20 Random Glucose 105 mg/dL (70-110) 07/06/18 06:20 Calcium 8.5 mg/dL (8.4-10.5) 07/06/18 06:20 Phosphorus 3.9 mg/dL (2.5-4.5) 07/06/18 06:20 Magnesium 1.9 mg/dL (1.7-2.2) 07/06/18 06:20 Total Bilirubin 1.0 mg/dL (0.2-1.3) 07/06/18 06:20 AST 35 U/L (17-59) 07/06/18 06:20 ALT 31 U/L (7-56) 07/06/18 06:20 Alkaline Phosphatase 72 U/L (38-126) 07/06/18 06:20 Lactate Dehydrogenase 589 U/L (333-699) 07/02/18 01:06 Total Creatine Kinase 481 U/L (35-230) H 07/02/18 01:06 CK-MB (CK-2) 5.4 ng/mL (0.0-3.6) H 07/02/18 01:06 CK-MB (CK-2) % 1.1 % (2.5-3.0) L 07/02/18 01:06 Troponin I < 0.01 ng/mL 07/02/18 01:06 Total Protein 6.5 g/dL (5.8-8.3) 07/06/18 06:20 Albumin 3.4 g/dL (3.0-4.8) 07/06/18 06:20 Globulin 3.1 gm/dL 07/06/18 06:20 Albumin/Globulin Ratio 1.1 (1.1-1.8) 07/06/18 06:20 Amylase 73 U/L (35-125) 07/02/18 01:06 Lipase 121 U/L (23-300) 07/02/18 01:06 Venous Blood Potassium 3.7 mmol/L (3.6-5.2) 07/02/18 03:15 Urine Color Yellow (YELLOW) 07/02/18 13:15 Urine Appearance Clear (CLEAR) 07/02/18 13:15 Urine pH 7.0 (4.7-8.0) 07/02/18 13:15 Ur Specific Decker 1.015 (1.005-1.035) 07/02/18 13:15 Urine Protein Negative mg/dL (<30 mg/dL) 07/02/18 13:15 Urine Glucose (UA) Negative mg/dL (NEGATIVE) 07/02/18 13:15 Urine Ketones Negative mg/dL (NEGATIVE) 07/02/18 13:15 Urine Blood Negative (NEGATIVE) 07/02/18 13:15 Urine Nitrate Negative (NEGATIVE) 07/02/18 13:15 Urine Bilirubin Negative (NEGATIVE) 07/02/18 13:15 Urine Urobilinogen 4.0 E.U./dL (<1 E.U./dL) H 07/02/18 13:15 Ur Leukocyte Esterase Negative Pelon/uL (NEGATIVE) 07/02/18 13:15 Blood Type O POSITIVE 07/06/18 06:20 Blood Type Confirm O POSITIVE 07/06/18 08:10 Antibody Screen Negative 07/06/18 06:20 BBK History Checked No verified bt 07/06/18 06:20 - Hospital Course Hospital Course: Pt seen and examined by me. I have reviewed the note of the medical parasitologist and I agree with it. I have discussed the assessment and plan with the resident. I have reviewed the medications and the last labs. Pt was discharged home on 07-06-18
== END 2018-07-06 20:59 | disposition home or self-care (01) | DRG 419 ==
LOC: ED 00:53 → ERH 03:16 → 5RNO 04:24 → OBSVTOIN 07-03 09:30 → 5RNO 07-06 16:49
PROVIDERS: ADMIT Internal Medicine Nephrology; ATTEND Internal Medicine Nephrology
PROC: 0DB68ZX Excision of Stomach, Via Natural or Artificial Opening Endoscopic, Diagnostic (ICD-10-PCS; 2018-07-04)
PROC: BF131ZZ Fluoroscopy of Gallbladder and Bile Ducts using Low Osmolar Contrast (ICD-10-PCS; 2018-07-06)
PROC: 0FT44ZZ Resection of Gallbladder, Percutaneous Endoscopic Approach (ICD-10-PCS; principal; 2018-07-06 10:00)
DX: K80.10 Calculus of gallbladder with chronic cholecystitis without obstruction (principal); K82.A1 Gangrene of gallbladder in cholecystitis; K29.70 Gastritis, unspecified, without bleeding; B96.81 Helicobacter pylori [H. pylori] as the cause of diseases classified elsewhere; K57.30 Diverticulosis of large intestine without perforation or abscess without bleeding; K21.9 Gastro-esophageal reflux disease without esophagitis; F17.200 Nicotine dependence, unspecified, uncomplicated; N40.0 Benign prostatic hyperplasia without lower urinary tract symptoms; K59.00 Constipation, unspecified; M47.9 Spondylosis, unspecified; Z82.3 Family history of stroke